=== PATIENT | female | born 1995 | race Caucasian/White ===

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

== ENCOUNTER 2017-12-09 22:18 | Emergency (ER) | payer OTHER ==
[~2017-12-09] VITALS: Ht 165.1 cm; Wt 97.5 kg
[2017-12-09 22:21] VITALS: BP 128/75
[2017-12-10] MEDS ORDERED: DICL50TA4 PO (00:22)
[2017-12-10] MEDS ORDERED: CYCL10TA2 PO (00:22)
[2017-12-10] MEDS ORDERED: METH4TAB2 PO (00:22)
--- NOTE | 2017-12-10 00:22 | PHYS DOC ---
Past Medical History Past Medical History: Depression Past Surgical History: Alcohol Use: Rarely Drug Use: None Adult General Chief Complaint Chief Complaint: LOWER EXT PAIN HPI HPI Patient is a 22 year old female with history of depression who presents today complaining of moderate right ankle pain and left lateral hip pain that began this morning when she woke up. Patient denies any known injury. States pain is worse on weight bearing. Has tried [id number]-ccaxiag patches with no relief. Describes the pain as throbbing and intermittent. Review of Systems Review of Systems Constitutional: Denies fever or chills [] Musculoskeletal: Reports left lateral hip pain and right ankle pain Integument: Denies rash or skin lesions [] Neurologic: Denies headache, focal weakness or sensory changes [] All other systems were reviewed and found to be within normal limits, except as documented in this note. Allergies Allergies Allergies Coded Allergies Type Severity Reaction Last Updated Verified No Known Drug Allergies 08/14/13 No Physical Exam Physical Exam Constitutional: Well developed, well nourished, no acute distress, non-toxic appearance. [] Skin: Warm, dry, no erythema, no rash. [] Back: No tenderness, no CVA tenderness. [] Extremities: Right ankle with no obvious deformity. Slight tenderness on palpation of the right lateral ankle. Full range of motion to the right ankle and toes. +2 right pedal pulse. Cap refill less than 2 seconds the right toes. Left hip with no obvious deformity. No tenderness on exam. Full range of motion to the left lower extremity. +2 left pedal pulse. Cap refill less than 2 seconds the left lower extremity. Neurologic: Alert and oriented X 3, normal motor function, normal sensory function, no focal deficits noted. [] Psychologic: Affect normal, judgement normal, mood normal. [] Current Patient Data Vital Signs Vital Signs Date Time Temp Pulse Resp B/P (MAP) Pulse Ox O2 Delivery O2 Flow Rate FiO2 12/09/17 22:21 98.9 92 18 128/75 (92) 100 Room Air 98.9 EKG EKG [] Radiology/Procedures Radiology/Procedures [] Course & Med Decision Making Course & Med Decision Making Pertinent Labs and Imaging studies reviewed. (See chart for details) This is a 22-year-old female patient presenting to the ED today with complaints of right ankle pain and left hip pain no known injury. X-rays are negative for any acute findings. Patient was discharged with diclofenac and cyclobenzaprine. Also given prescription for Medrol Dosepak. Provided orthopedic doctor for follow-up as an outpatient. Sanket Disclaimer Sanket Disclaimer This electronic medical record was generated, in whole or in part, using a voice recognition dictation system. Departure Departure Impression: Primary Impression: Left hip pain Additional Impression: Right ankle pain Disposition: HOME, SELF-CARE Condition: STABLE Referrals: JESSICA AC DO (PCP) follow up in one week SARKIS WELLS MD follow up in one week Patient Instructions: Ankle Pain, Musculoskeletal Pain Additional Instructions: You were seen for left hip pain and right ankle pain. Ice and elevate the affected areas. Use the prescribed medications as ordered. Follow-up with the provided specialist or your own doctor in one week. Scripts Methylprednisolone (MEDROL) 4 Mg Tab.ds.pk 1 PKG PO UD, #1 PKG Prov: ANGELA SHEETS APRN 12/10/17 Cyclobenzaprine Hcl (CYCLOBENZAPRINE HCL) 10 Mg Tablet 1 TAB PO TID, #30 TAB Prov: ANGELA SHEETS APRN 12/10/17 Diclofenac Sodium (DICLOFENAC SODIUM) 50 Mg Tablet.dr 1 TAB PO BID, #20 TAB 0 Refills Prov: ANGELA SHEETS APRN 12/10/17 Problem Qualifiers Additional Impression: Right ankle pain Chronicity: acute Qualified Codes: M25.571 - Pain in right ankle and joints of right foot MAHADSIMONANGELA CASTANEDA Dec 10, 2017 00:23
--- NOTE | 2017-12-10 07:52 | RAD ---
Right ankle, 3 views, 12/09/2016: HISTORY: Ankle pain No fracture or dislocation is identified. There is minimal soft tissue swelling. IMPRESSION: No acute bony abnormality is detected. Electronically signed by: Sarath Cabral MD (12/10/2017 7:49 AM) [facility]
--- NOTE | 2017-12-10 07:53 | RAD ---
Pelvis with left hip, 3 views, 12/09/2017: HISTORY: Pain No fracture or dislocation is identified. The hip joints are well-maintained. IMPRESSION: No significant abnormality is detected. Electronically signed by: Sarath Cabral MD (12/10/2017 7:50 AM) [facility]
== END 2017-12-10 00:29 | disposition home or self-care (01) ==
LOC: ER 22:18
DX: M25.571 Pain in right ankle and joints of right foot (principal); M25.552 Pain in left hip; F32.9 Major depressive disorder, single episode, unspecified; Z98.890 Other specified postprocedural states
CPT/HCPCS: 73502; 73610; 99284

== ENCOUNTER 2018-04-23 10:11 | Emergency (ER) | payer SELFPAY ==
[~2018-04-23] VITALS: Ht 165.1 cm; Wt 93.0 kg
[~2018-04-23 10:11] MED LIST changes: +CYCL10TA2 PO; +DICL50TA4 PO; +METH4TAB2 PO
[2018-04-23] MEDS ORDERED: LIDO:MAALOX 1:1 20 ML SINGLE DOSE. SWSW ONE (11:00)
--- NOTE | 2018-04-23 11:19 | PHYS DOC ---
Past Medical History Past Medical History: Depression Past Surgical History: Alcohol Use: Rarely Drug Use: None Adult General Chief Complaint Chief Complaint: ABDOMINAL PAIN HPI HPI Patient is a 22 year old female who presents to the ER with complaints of upper abdominal pain with nausea and vomiting x1 today. She denies any lower abdominal pain, back pain, diarrhea, fever, dysuria, irregular vaginal discharge , back pain, shortness of breath, or chest pain. She states the pain is sharp, burning, and stabbing. Currently, a 01/29. Pt states that nothing exacerbates or alleviates her pain. Pt states that when she vomited there was bright red blood in her vomit. She is currently taking augmentin for a sinus infection. Review of Systems Review of Systems Constitutional: Denies fever or chills [] Eyes: Denies change in visual acuity, redness, or eye pain [] HENT: Denies nasal congestion or sore throat [] Respiratory: Denies cough or shortness of breath [] Cardiovascular: No additional information not addressed in HPI [] GI: Denies abdominal pain, nausea, vomiting, bloody stools or diarrhea [] : Denies dysuria or hematuria [] Musculoskeletal: Denies back pain or joint pain [] Integument: Denies rash or skin lesions [] Neurologic: Denies headache, focal weakness or sensory changes [] Endocrine: Denies polyuria or polydipsia [] All other systems were reviewed and found to be within normal limits, except as documented in this note. Current Medications Current Medications Current Medications Medications (Trade) Dose Ordered Sig/Melinda Start Time Stop Time Status Last Admin Dose Admin Famotidine (Pepcid Vial) 20 mg 1X ONCE 04/23/18 12:45 04/23/18 12:46 DC 04/23/18 12:56 20 MG Morphine Sulfate (Morphine Sulfate) 4 mg 1X ONCE 04/23/18 12:45 04/23/18 12:46 DC 04/23/18 12:45 4 MG Multi-Ingredient Mouthwash/Gargle (Gi Cocktail) 20 ml 1X ONCE 04/23/18 11:00 04/23/18 11:01 DC 04/23/18 11:15 20 ML Ondansetron HCl (Zofran) 4 mg 1X ONCE 04/23/18 12:45 04/23/18 12:46 DC 04/23/18 12:54 4 MG Allergies Allergies Allergies Coded Allergies Type Severity Reaction Last Updated Verified No Known Drug Allergies 08/14/13 No Physical Exam Physical Exam Constitutional: Well developed, well nourished, no acute distress, non-toxic appearance. [] HENT: Normocephalic, atraumatic, bilateral external ears normal, oropharynx moist, no oral exudates, nose normal. [] Eyes: PERRLA, EOMI, conjunctiva normal, no discharge. [] Neck: Normal range of motion, no tenderness, supple, no stridor. [] Cardiovascular:Heart rate regular rhythm, no murmur [] Lungs & Thorax: Bilateral breath sounds clear to auscultation [] Abdomen: Bowel sounds normal, soft, no tenderness, no masses, no pulsatile masses. [] Skin: Warm, dry, no erythema, no rash. [] Back: No tenderness, no CVA tenderness. [] Extremities: No tenderness, no cyanosis, no clubbing, ROM intact, no edema. [] Neurologic: Alert and oriented X 3, normal motor function, normal sensory function, no focal deficits noted. [] Psychologic: Affect normal, judgement normal, mood normal. [] Current Patient Data Vital Signs Vital Signs Date Time Temp Pulse Resp B/P (MAP) Pulse Ox O2 Delivery O2 Flow Rate FiO2 04/23/18 11:22 90 148/94 (112) 100 Room Air 04/23/18 10:17 98.4 20 98.4 Lab Values Laboratory Tests Test 04/23/18 10:15 04/23/18 10:20 04/23/18 10:57 Urine Collection Type Unknown Urine Color Yellow Urine Clarity Clear Urine pH 7.5 Urine Specific [place] 1.020 Urine Protein Negative mg/dL (NEG-TRACE) Urine Glucose (UA) Negative mg/dL (NEG) Urine Ketones (Stick) Negative mg/dL (NEG) Urine Blood Negative (NEG) Urine Nitrite Negative (NEG) Urine Bilirubin Negative (NEG) Urine Urobilinogen Dipstick 0.2 mg/dL (0.2 mg/dL) Urine Leukocyte Esterase Negative (NEG) Urine RBC Occ /HPF (0-2) Urine WBC 1-4 /HPF (0-4) Urine Squamous Epithelial Cells Many /LPF Urine Bacteria Few /HPF (0-FEW) Urine Mucus Mod /LPF Sodium Level 140 mmol/L (136-145) Potassium Level 3.9 mmol/L (3.5-5.1) Chloride Level 102 mmol/L (98-107) Carbon Dioxide Level 30 mmol/L (21-32) Anion Gap 8 (6-14) Blood Urea Nitrogen 10 mg/dL (7-20) Creatinine 0.7 mg/dL (0.6-1.0) Estimated GFR (Cockcroft-Gault) 106.7 BUN/Creatinine Ratio 14 (6-20) Glucose Level 87 mg/dL (70-99) Calcium Level 9.8 mg/dL (8.5-10.1) Total Bilirubin 0.1 mg/dL (0.2-1.0) L Aspartate Amino Transferase (AST) 27 U/L (15-37) Alanine Aminotransferase (ALT) 34 U/L (14-59) Alkaline Phosphatase 84 U/L (46-116) Total Protein 9.0 g/dL (6.4-8.2) H Albumin 3.7 g/dL (3.4-5.0) Albumin/Globulin Ratio 0.7 (1.0-1.7) L Lipase 86 U/L (73-393) POC Urine HCG, Qualitative Hcg negative (Negative) White Blood Count 12.0 x10^3/uL (4.0-11.0) H Red Blood Count 4.89 x10^6/uL (3.50-5.40) Hemoglobin 11.9 g/dL (12.0-15.5) L Hematocrit 36.7 % (36.0-47.0) Mean Corpuscular Volume 75 fL (79-100) L Mean Corpuscular Hemoglobin 24 pg (25-35) L Mean Corpuscular Hemoglobin Concent 32 g/dL (31-37) Red Cell Distribution Width 18.2 % (11.5-14.5) H Platelet Count 419 x10^3/uL (140-400) H Neutrophils (%) (Auto) 62 % (31-73) Lymphocytes (%) (Auto) 27 % (24-48) Monocytes (%) (Auto) 7 % (0-9) Eosinophils (%) (Auto) 4 % (0-3) H Basophils (%) (Auto) 1 % (0-3) Neutrophils # (Auto) 7.4 x10^3uL (1.8-7.7) Lymphocytes # (Auto) 3.2 x10^3/uL (1.0-4.8) Monocytes # (Auto) 0.8 x10^3/uL (0.0-1.1) Eosinophils # (Auto) 0.5 x10^3/uL (0.0-0.7) Basophils # (Auto) 0.1 x10^3/uL (0.0-0.2) Platelet Estimate Increased (ADEQUATE) Giant Platelets Few Polychromasia Slight Hypochromasia Slight Anisocytosis Slight Laboratory Tests 04/23/18 10:57 Laboratory Tests 04/23/18 10:15 EKG EKG [] Radiology/Procedures Radiology/Procedures [] Course & Med Decision Making Course & Med Decision Making Pertinent Labs and Imaging studies reviewed. (See chart for details) [] Dragon Disclaimer Dragon Disclaimer This electronic medical record was generated, in whole or in part, using a voice recognition dictation system. Departure Departure Impression: Primary Impression: Acid reflux Additional Impressions: Epigastric abdominal pain Nausea & vomiting Disposition: 01 HOME, SELF-CARE Condition: STABLE Referrals: JESSICA AC DO (PCP) Patient Instructions: Diet for Gastroesophageal Reflux Disease, Adult, Easy-to- Read, Gastroesophageal Reflux Disease, Adult, [id number] Additional Instructions: Fill prescriptions and use them as directed. Recommend clear fluids for the next 24 hours. Then you may advance to bland foods such as bananas, rice, applesauce, and dry toast. Follow-up with your primary care doctor in the next 1 -2 days. Return to the emergency room if your symptoms worsen. Scripts Famotidine (FAMOTIDINE) 20 Mg Tablet 20 MG PO BID for 10 Days, #20 TAB 0 Refills Prov: MICHELLE ESTEVEZ [address] [employer] 04/23/18 Ondansetron (ONDANSETRON ODT) 4 Mg Tab.rapdis 1 TAB PO PRN Q6-8HRS PRN for NAUSEA/VOMITING, #16 TAB 0 Refills Prov: MICHELLE [address]EV[address] [employer] 04/23/18 Problem Qualifiers Primary Impression: Acid reflux Esophagitis presence: esophagitis presence not specified Qualified Codes: K21.9 - Gastro-esophageal reflux disease without esophagitis Additional Impressions: Nausea & vomiting Vomiting type: unspecified Vomiting Intractability: non-intractable Qualified Codes: R11.2 - Nausea with vomiting, unspecified MICHELLE [address] [employer] Apr 23, 2018 11:19
[2018-04-23 11:25] LABS: BILIRUBIN,URINE NEGATIVE (NEG); CLARITY,URINE CLEAR; COLOR,URINE YELLOW; NITRITE,URINE NEGATIVE (NEG); PH,URINE 7.5; PROTEIN,URINE NEGATIVE (NEG-TRACE); UROBILINOGEN,URINE 0.2 mg/dL (0.2 mg/dL)
[2018-04-23 11:26] LABS: BASO # 0.1 x10^3/uL (0.0-0.2); BASO % 1 % (0-3); EOS # 0.5 x10^3/uL (0.0-0.7); EOS % 4 % (0-3); HEMATOCRIT 36.7 % (36.0-47.0); HEMOGLOBIN 11.9 g/dL (12.0-15.5); LYMPH # 3.2 x10^3/uL (1.0-4.8); LYMPH % 27 % (24-48); MEAN CORPUSCULAR HEMOGLOBIN 24 pg (25-35); MEAN CORPUSCULAR HGB CONC 32 g/dL (31-37); MEAN CORPUSCULAR VOLUME 75 fL (79-100); MONO # 0.8 x10^3/uL (0.0-1.1); MONO % 7 % (0-9); NEUT # 7.4 x10^3uL (1.8-7.7); NEUT % 62 % (31-73); PLATELET COUNT 419 x10^3/uL (140-400); RED BLOOD COUNT 4.89 x10^6/uL (3.50-5.40); RED CELL DISTRIBUTION WIDTH 18.2 % (11.5-14.5)
[2018-04-23 11:29] LABS: CALCIUM 9.8 mg/dL (8.5-10.1); CREATININE 0.7 mg/dL (0.6-1.0); GFR 106.7; POTASSIUM 3.9 mmol/L (3.5-5.1)
[2018-04-23 11:36] LABS: ALBUMIN 3.7 g/dL (3.4-5.0); ALBUMIN/GLOBULIN RATIO 0.7 (1.0-1.7); TOTAL BILIRUBIN 0.1 mg/dL (0.2-1.0)
[2018-04-23 11:57] LABS: BACTERIA,URINE FEW /HPF (0-FEW); RBC,URINE OCC /HPF (0-2); SQUAMOUS EPITHELIAL CELL,UR MANY /LPF
[2018-04-23 12:38] VITALS: BP 157/101
[2018-04-23] MEDS ORDERED: ONDANSETRON PF 4 MG/2 ML VIAL. IV ONE (12:45)
[2018-04-23] MEDS ORDERED: FAMOTIDINE 20 MG/2 ML VIAL IVP ONE (12:45)
[2018-04-23] MEDS ORDERED: MORPHINE SULFATE 4 MG/ML VIAL. IV ONE (12:45)
[2018-04-23 12:59] LABS: ANISOCYTOSIS SLIGHT; HYPOCHROMIA SLIGHT; PLT ESTIMATE INCREASED (ADEQUATE); POLYCHROMASIA SLIGHT
[2018-04-23] MEDS ORDERED: FAMO20TA5 PO (13:44)
[2018-04-23] MEDS ORDERED: ONDA4TAB12 PO (13:44)
== END 2018-04-23 14:01 | disposition home or self-care (01) ==
LOC: ER 10:11
DX: K21.9 Gastro-esophageal reflux disease without esophagitis (principal); R11.2 Nausea with vomiting, unspecified; F32.9 Major depressive disorder, single episode, unspecified
CPT/HCPCS: 36415; 80053; 81001; 81025; 83690; 85025; 96374; 96375; 99283; J2270; J2405; J3490

== ENCOUNTER 2018-06-17 16:40 | Inpatient (IN) | payer BC ==
[~2018-06-17] VITALS: Ht 165.1 cm; Wt 94.8 kg
[~2018-06-17 16:40] MED LIST changes: +FAMO-63 PO; +FAMO20TA5 PO; +HYDR-3164 PO; +ONDA4TAB12 PO
[2018-06-17 17:31] LABS: BASO # 0.1 x10^3/uL (0.0-0.2); BASO % 1 % (0-3); EOS # 0.1 x10^3/uL (0.0-0.7); EOS % 1 % (0-3); HEMATOCRIT 38.1 % (36.0-47.0); HEMOGLOBIN 12.1 g/dL (12.0-15.5); LYMPH # 1.9 x10^3/uL (1.0-4.8); LYMPH % 17 % (24-48); MEAN CORPUSCULAR HEMOGLOBIN 24 pg (25-35); MEAN CORPUSCULAR HGB CONC 32 g/dL (31-37); MEAN CORPUSCULAR VOLUME 77 fL (79-100); MONO # 0.6 x10^3/uL (0.0-1.1); MONO % 6 % (0-9); NEUT # 8.6 x10^3uL (1.8-7.7); NEUT % 76 % (31-73); PLATELET COUNT 329 x10^3/uL (140-400); RED BLOOD COUNT 4.95 x10^6/uL (3.50-5.40); RED CELL DISTRIBUTION WIDTH 18.3 % (11.5-14.5); WHITE BLOOD COUNT 11.3 x10^3/uL (4.0-11.0)
[2018-06-17 17:41] LABS: CALCIUM 9.7 mg/dL (8.5-10.1); CREATININE 0.7 mg/dL (0.6-1.0); GFR 106.7
[2018-06-17 17:50] LABS: ALBUMIN 3.9 g/dL (3.4-5.0); ALBUMIN/GLOBULIN RATIO 0.9 (1.0-1.7); TOTAL BILIRUBIN 0.1 mg/dL (0.2-1.0); TOTAL PROTEIN 8.1 g/dL (6.4-8.2)
--- NOTE | 2018-06-17 19:12 | RAD ---
Indication:RUQ PAIN HX STONES TECHNIQUE: Grayscale, color Doppler and spectral waveform is of the abdomen obtained. COMPARISON:05/23/2018 FINDINGS: Visualized pancreas is within normal limits. IVC within normal limits. Liver is mildly enlarged measuring 18 cm in length with normal echogenicity. No pericholecystic fluid. Gallbladder wall is top normal in thickness. Layering gallstones noted. CBD is mildly dilated measuring 6 mm. Right kidney measures 10 cm in length without hydronephrosis. IMPRESSION: 1. Cholelithiasis with gallbladder distention and positive sonographic Baez's sign. Correlate for signs and symptoms of acute cholecystitis. 2. Dilated CBD, new from previous exam may be secondary to distal obstructing stone. Further evaluation with MRCP recommended. Electronically signed by: José Mantilla DO (06/17/2018 7:09 PM) [facility]
[2018-06-17] MEDS ORDERED: fentaNYL PF VIAL 100 MCG/2 ML VIAL IV ONE (19:15)
[2018-06-17] MEDS ORDERED: IV NORMAL SALINE 1000ML BAG 1,000 ML IV ONE (19:15)
[2018-06-17] MEDS ORDERED: ONDANSETRON PF 4 MG/2 ML VIAL. IV PRN (19:45)
[2018-06-17] MEDS ORDERED: MORPHINE SULFATE 4 MG/ML VIAL. IV PRN (19:45)
--- NOTE | 2018-06-17 20:02 | PHYS DOC ---
Past Medical History Past Medical History: Depression, Other Additional Past Medical Histor: gallstones Past Surgical History: Alcohol Use: Rarely Drug Use: None Adult General Chief Complaint Chief Complaint: ABDOMINAL PAIN HPI HPI Patient is a 22 year old female who presents with RUQ pain. The patient was seen here on the 23 of May and diagnosed with cholelithiasis. She states she tried to make a follow up appointment, but then felt better and did not follow through. She developed severe pain today and also had nausea. She feels that she has significantly worsened. She denies vomiting, constipation or diarrhea. She denies fever. The patient has been nothing by mouth since noon today with sips of water this afternoon. Review of Systems Review of Systems Constitutional: Denies fever or chills [] Respiratory: Denies cough or shortness of breath [] Cardiovascular: No additional information not addressed in HPI [] GI: See history of present illness : Denies dysuria or hematuria [] Musculoskeletal: Denies back pain or joint pain [] Integument: Denies rash or skin lesions [] Neurologic: Denies headache, focal weakness or sensory changes [] Endocrine: Denies polyuria or polydipsia [] All other systems were reviewed and found to be within normal limits, except as documented in this note. Current Medications Current Medications Current Medications Medications (Trade) Dose Ordered Sig/[facility] Start Time Stop Time Status Last Admin Dose Admin Fentanyl Citrate (Fentanyl 2ml Vial) 50 mcg PRN Q1HR PRN 06/17/18 19:45 06/18/18 19:44 Morphine Sulfate (Morphine Sulfate) 4 mg PRN Q2HR PRN 06/17/18 19:45 06/18/18 19:44 Ondansetron HCl (Zofran) 4 mg PRN Q8HRS PRN 06/17/18 19:45 06/18/18 19:44 Sodium Chloride 1,000 ml @ 125 mls/hr Q8H 06/17/18 19:36 06/18/18 19:35 Allergies Allergies Allergies Coded Allergies Type Severity Reaction Last Updated Verified No Known Drug Allergies 08/14/13 No Physical Exam Physical Exam Constitutional: Well developed, well nourished, no acute distress, non-toxic appearance. [] Neck: Normal range of motion, no tenderness, supple, no stridor. [] Cardiovascular:Heart rate regular rhythm, no murmur [] Lungs & Thorax: Bilateral breath sounds clear to auscultation [] Abdomen: Bowel sounds normal, soft, right upper quadrant tenderness, positive Baez's sign, no masses, no pulsatile masses. [] Skin: Warm, dry, no erythema, no rash. [] Back: No tenderness, no CVA tenderness. [] Extremities: No tenderness, no cyanosis, no clubbing, ROM intact, no edema. [] Neurologic: Alert and oriented X 3, normal motor function, normal sensory function, no focal deficits noted. [] Psychologic: Affect normal, judgement normal, mood normal. [] Current Patient Data Vital Signs Vital Signs Date Time Temp Pulse Resp B/P (MAP) Pulse Ox O2 Delivery O2 Flow Rate FiO2 06/17/18 19:21 97 18 132/88 (103) 99 Room Air 06/17/18 16:55 97.9 97.9 Lab Values Laboratory Tests Test 06/17/18 17:25 06/17/18 17:58 White Blood Count 11.3 x10^3/uL (4.0-11.0) H Red Blood Count 4.95 x10^6/uL (3.50-5.40) Hemoglobin 12.1 g/dL (12.0-15.5) Hematocrit 38.1 % (36.0-47.0) Mean Corpuscular Volume 77 fL (79-100) L Mean Corpuscular Hemoglobin 24 pg (25-35) L Mean Corpuscular Hemoglobin Concent 32 g/dL (31-37) Red Cell Distribution Width 18.3 % (11.5-14.5) H Platelet Count 329 x10^3/uL (140-400) Neutrophils (%) (Auto) 76 % (31-73) H Lymphocytes (%) (Auto) 17 % (24-48) L Monocytes (%) (Auto) 6 % (0-9) Eosinophils (%) (Auto) 1 % (0-3) Basophils (%) (Auto) 1 % (0-3) Neutrophils # (Auto) 8.6 x10^3uL (1.8-7.7) H Lymphocytes # (Auto) 1.9 x10^3/uL (1.0-4.8) Monocytes # (Auto) 0.6 x10^3/uL (0.0-1.1) Eosinophils # (Auto) 0.1 x10^3/uL (0.0-0.7) Basophils # (Auto) 0.1 x10^3/uL (0.0-0.2) Sodium Level 140 mmol/L (136-145) Potassium Level 4.0 mmol/L (3.5-5.1) Chloride Level 103 mmol/L (98-107) Carbon Dioxide Level 29 mmol/L (21-32) Anion Gap 8 (6-14) Blood Urea Nitrogen 17 mg/dL (7-20) Creatinine 0.7 mg/dL (0.6-1.0) Estimated GFR (Cockcroft-Gault) 106.7 BUN/Creatinine Ratio 24 (6-20) H Glucose Level 99 mg/dL (70-99) Calcium Level 9.7 mg/dL (8.5-10.1) Total Bilirubin 0.1 mg/dL (0.2-1.0) L Aspartate Amino Transferase (AST) 13 U/L (15-37) L Alanine Aminotransferase (ALT) 15 U/L (14-59) Alkaline Phosphatase 79 U/L (46-116) Total Protein 8.1 g/dL (6.4-8.2) Albumin 3.9 g/dL (3.4-5.0) Albumin/Globulin Ratio 0.9 (1.0-1.7) L Amylase Level 30 U/L (25-115) Lipase 89 U/L (73-393) POC Urine HCG, Qualitative Hcg negative (Negative) Laboratory Tests 06/17/18 17:25 Laboratory Tests 06/17/18 17:25 EKG EKG [] Radiology/Procedures Radiology/Procedures [] Course & Med Decision Making Course & Med Decision Making Pertinent Labs and Imaging studies reviewed. (See chart for details) The patient received Zofran and fentanyl in the emergency department as well as a bolus of fluids. The patient's ultrasound does show that her condition has worsened with possible bile duct obstruction. Dr. Dey was consulted in the care of this patient. She is being admitted to Dr. Poole's service. Dragon Disclaimer Dragon Disclaimer This electronic medical record was generated, in whole or in part, using a voice recognition dictation system. Departure Departure Impression: Primary Impression: Cholecystitis Additional Impression: Cholelithiasis Disposition: ADMITTED INPATIENT Condition: STABLE Problem Qualifiers AZUL POWELL APRN Jun 17, 2018 20:02
[2018-06-17 21:15] VITALS: BP_SYST 118; BP_SYST 132; BP_DIAS 66; BP_DIAS 72
--- NOTE | 2018-06-17 21:15 | NUR ---
ADMIT Pt arrived via gurney to unit. A/Ox4, room air VSS, afebrile. Pt c/o pain in RUQ 07/30. Denies current N/V. IVF initiated at this time. Full admission assessment completed at this time. Pt denies med allergies. Discussed plan of care, advised NPO. Call light w/in reach, bed in lowest and locked position. Will continue to monitor closely.
[2018-06-17] MEDS: IV NORMAL SALINE 1000ML BAG 1,000 ML IV SCH (21:38)
[2018-06-17] MEDS: fentaNYL PF VIAL 100 MCG/2 ML VIAL IV PRN (21:49)
[2018-06-17 23:20] VITALS: BP 132/66
[2018-06-18] MEDS: fentaNYL PF VIAL 100 MCG/2 ML VIAL IV PRN ×4 (00:19→15:52)
[2018-06-18 03:39] VITALS: BP 104/60
[2018-06-18 04:24] LABS: BASO # 0.1 x10^3/uL (0.0-0.2); BASO % 1 % (0-3); EOS # 0.2 x10^3/uL (0.0-0.7); EOS % 3 % (0-3); HEMOGLOBIN 10.9 g/dL (12.0-15.5); LYMPH # 3.5 x10^3/uL (1.0-4.8); LYMPH % 43 % (24-48); MEAN CORPUSCULAR HEMOGLOBIN 25 pg (25-35); MEAN CORPUSCULAR HGB CONC 32 g/dL (31-37); MEAN CORPUSCULAR VOLUME 77 fL (79-100); MONO # 0.6 x10^3/uL (0.0-1.1); MONO % 7 % (0-9); NEUT # 3.9 x10^3uL (1.8-7.7); NEUT % 47 % (31-73); PLATELET COUNT 280 x10^3/uL (140-400); RED BLOOD COUNT 4.42 x10^6/uL (3.50-5.40); RED CELL DISTRIBUTION WIDTH 18.5 % (11.5-14.5); WHITE BLOOD COUNT 8.2 x10^3/uL (4.0-11.0)
[2018-06-18] MEDS: IV NORMAL SALINE 1000ML BAG 1,000 ML IV SCH ×2 (05:47→11:36)
[2018-06-18 06:13] LABS: CALCIUM 8.6 mg/dL (8.5-10.1); CREATININE 0.7 mg/dL (0.6-1.0); GFR 106.7; POTASSIUM 3.5 mmol/L (3.5-5.1)
[2018-06-18 07:00] VITALS: BP 106/64
--- NOTE | 2018-06-18 07:22 | NUR ---
Routine Consult called to Dr. Dey regarding acute cholelithiasis and acute cholecystitis.
[2018-06-18] MEDS ORDERED: ONDANSETRON ODT 4 MG TAB.RAPDIS. PO PRN (09:00)
[2018-06-18] MEDS ORDERED: ONDANSETRON PF 4 MG/2 ML VIAL. IV PRN (09:00)
[2018-06-18] MEDS ORDERED: HYDROcodone/APAP 5/325MG 1 TAB TABLET PO PRN (09:00)
[2018-06-18] MEDS ORDERED: FAMOTIDINE 20 MG TABLET. PO SCH (09:00)
[2018-06-18] MEDS ORDERED: ACETAMINOPHEN 500 MG TABLET PO PRN (09:00)
[2018-06-18] MEDS ORDERED: ACETAMINOPHEN/CODEINE 300/30MG TABLET. PO PRN (09:00)
[2018-06-18] MEDS: CYCLOBENZAPRINE 10 MG TABLET. PO SCH ×3 (10:00→23:51)
[2018-06-18] MEDS: FAMOTIDINE 20 MG TABLET. PO SCH ×2 (10:00→20:00)
--- NOTE | 2018-06-18 10:19 | PDOC2 ---
CONSULT Date of Consult Date of Consult DATE: 06/18/18 TIME: 10:14 Reason for Consult Reason for Consult: Symptomatic cholelithiasis Referring Physician Referring Physician: Emery Identification/Chief Complaint Chief Complaint epigastric pain Source Source: Chart review, Patient History of Present Illness Reason for Visit: 22 yo F with multiple ER visits over the past month for epigastric abd pain. Worsened last night and was admitted. Pain in epigastric/RUQ area. N/V. Pt does report feeling better today. Past Medical History Cardiovascular: No pertinent hx Psych: Depression Past Surgical History Past Surgical History: Family History Family History: No Significant Social History ALCOHOL: social Current Problem List Problem List Problems Medical Problems: (1) Cholecystitis Status: Acute (2) Cholelithiasis Status: Acute Current Medications Current Medications Current Medications Sodium Chloride 1,000 ml @ 1,000 mls/hr 1X ONCE IV Last administered on at 19:22; Start 06/17/18 at 19:15; Stop 06/17/18 at 20:14; Status DC Fentanyl Citrate (Fentanyl 2ml Vial) 50 mcg 1X ONCE IV Last administered on at 19:23; Start 06/17/18 at 19:15; Stop 06/17/18 at 19:16; Status DC Ondansetron HCl (Zofran) 4 mg PRN Q8HRS PRN IV NAUSEA/VOMITING Last administered on 06/18/18at 05:52; Start 06/17/18 at 19:45; Stop 06/18/18 at 08:57 ; Status DC Morphine Sulfate (Morphine Sulfate) 4 mg PRN Q2HR PRN IV PAIN; Start 06/17/18 at 19:45; Stop 06/18/18 at 19:44 Fentanyl Citrate (Fentanyl 2ml Vial) 50 mcg PRN Q1HR PRN IV PAIN Last administered on 06/18/18at 05:51; Start 06/17/18 at 19:45; Stop 06/18/18 at 19:44 Sodium Chloride 1,000 ml @ 125 mls/hr Q8H IV Last administered on 06/18/18at 05 :47; Start 06/17/18 at 19:36; Stop 06/18/18 at 19:35 Ondansetron HCl (Zofran) 4 mg PRN Q6HRS PRN IV NAUSEA/VOMITING; Start 06/18/18 at 09:00 Acetaminophen (Tylenol) 500 mg PRN Q6HRS PRN PO MILD PAIN / TEMP; Start at 09:00 Acetaminophen/ Codeine Phosphate (Tylenol #3) 1 tab PRN Q6HRS PRN PO MODERATE PAIN; Start 06/18/18 at 09:00 Cyclobenzaprine HCl (Flexeril) 10 mg TID PO ; Start 06/18/18 at 10:00 Famotidine (Pepcid) 20 mg BID PO ; Start 06/18/18 at 10:00 Famotidine (Pepcid) 20 mg BID PO ; Start 06/18/18 at 09:00; Status UNV Acetaminophen/ Hydrocodone Bitart (Lortab 5/325) 1 tab PRN Q6HRS PRN PO SEVERE PAIN; Start 06/18/18 at 09:00 Ondansetron HCl (Zofran Odt) 4 mg PRN QID PRN PO NAUSEA/VOMITING; Start at 09:00 Active Scripts Active Pepcid (Famotidine) 20 Mg Tablet 20 Mg PO BID Ondansetron Odt (Ondansetron) 4 Mg Tab.rapdis 1 Tab PO PRN Q6-8HRS [place] 5-325 Tablet (Acetaminophen/Hydrocodone Bitart) 1 Each Tablet 1 Tab PO PRN Q6HRS PRN Famotidine 20 Mg Tablet 20 Mg PO BID 10 Days Ondansetron Odt (Ondansetron) 4 Mg Tab.rapdis 1 Tab PO PRN Q6-8HRS PRN Medrol (Methylprednisolone) 4 Mg Tab.ds.pk 1 Pkg PO UD Cyclobenzaprine Hcl 10 Mg Tablet 1 Tab PO TID Diclofenac Sodium 50 Mg Tablet.dr 1 Tab PO BID Valtrex (Valacyclovir Hcl) 1,000 Mg Tablet 1 Tab PO BID 7 Days Reported Lutera (Levonorgestrel-Eth Estradiol) 1 Each Tablet 1 Each PO DAILY Allergies Allergies: Coded Allergies: No Known Drug Allergies (Unverified , 08/14/13) ROS Gastrointestinal: Yes Abdominal Pain Physical Exam General: Alert, Oriented X3, Cooperative, No acute distress HEENT: Atraumatic Lungs: Normal air movement Abdomen: Soft, Other (mild TTP RUQ) Extremities: No clubbing, No cyanosis Skin: No rashes, No breakdown Neuro: Normal speech, Sensation intact Psych/Mental Status: Mental status NL, Mood NL Vitals VITALS Vital Signs Date Time Temp Pulse Resp B/P (MAP) Pulse Ox O2 Delivery O2 Flow Rate FiO2 06/18/18 07:00 98.1 86 18 106/64 (78) 100 Room Air 98.1 Labs Labs Laboratory Tests Test 06/17/18 17:25 06/17/18 17:58 06/18/18 03:35 White Blood Count 11.3 x10^3/uL (4.0-11.0) 8.2 x10^3/uL (4.0-11.0) Red Blood Count 4.95 x10^6/uL (3.50-5.40) 4.42 x10^6/uL (3.50-5.40) Hemoglobin 12.1 g/dL (12.0-15.5) 10.9 g/dL (12.0-15.5) Hematocrit 38.1 % (36.0-47.0) 34.0 % (36.0-47.0) Mean Corpuscular Volume 77 fL (79-100) 77 fL (79-100) Mean Corpuscular Hemoglobin 24 pg (25-35) 25 pg (25-35) Mean Corpuscular Hemoglobin Concent 32 g/dL (31-37) 32 g/dL (31-37) Red Cell Distribution Width 18.3 % (11.5-14.5) 18.5 % (11.5-14.5) Platelet Count 329 x10^3/uL (140-400) 280 x10^3/uL (140-400) Neutrophils (%) (Auto) 76 % (31-73) 47 % (31-73) Lymphocytes (%) (Auto) 17 % (24-48) 43 % (24-48) Monocytes (%) (Auto) 6 % (0-9) 7 % (0-9) Eosinophils (%) (Auto) 1 % (0-3) 3 % (0-3) Basophils (%) (Auto) 1 % (0-3) 1 % (0-3) Neutrophils # (Auto) 8.6 x10^3uL (1.8-7.7) 3.9 x10^3uL (1.8-7.7) Lymphocytes # (Auto) 1.9 x10^3/uL (1.0-4.8) 3.5 x10^3/uL (1.0-4.8) Monocytes # (Auto) 0.6 x10^3/uL (0.0-1.1) 0.6 x10^3/uL (0.0-1.1) Eosinophils # (Auto) 0.1 x10^3/uL (0.0-0.7) 0.2 x10^3/uL (0.0-0.7) Basophils # (Auto) 0.1 x10^3/uL (0.0-0.2) 0.1 x10^3/uL (0.0-0.2) Sodium Level 140 mmol/L (136-145) 141 mmol/L (136-145) Potassium Level 4.0 mmol/L (3.5-5.1) 3.5 mmol/L (3.5-5.1) Chloride Level 103 mmol/L (98-107) 104 mmol/L (98-107) Carbon Dioxide Level 29 mmol/L (21-32) 26 mmol/L (21-32) Anion Gap 8 (6-14) 11 (6-14) Blood Urea Nitrogen 17 mg/dL (7-20) 13 mg/dL (7-20) Creatinine 0.7 mg/dL (0.6-1.0) 0.7 mg/dL (0.6-1.0) Estimated GFR (Cockcroft-Gault) 106.7 106.7 BUN/Creatinine Ratio 24 (6-20) Glucose Level 99 mg/dL (70-99) 119 mg/dL (70-99) Calcium Level 9.7 mg/dL (8.5-10.1) 8.6 mg/dL (8.5-10.1) Total Bilirubin 0.1 mg/dL (0.2-1.0) Aspartate Amino Transf (AST/SGOT) 13 U/L (15-37) Alanine Aminotransferase (ALT/SGPT) 15 U/L (14-59) Alkaline Phosphatase 79 U/L (46-116) Total Protein 8.1 g/dL (6.4-8.2) Albumin 3.9 g/dL (3.4-5.0) Albumin/Globulin Ratio 0.9 (1.0-1.7) Amylase Level 30 U/L (25-115) Lipase 89 U/L (73-393) Bedside Urine HCG, Qualitative Hcg negative (Negative) Laboratory Tests Test 06/17/18 17:25 06/17/18 17:58 06/18/18 03:35 White Blood Count 11.3 x10^3/uL (4.0-11.0) 8.2 x10^3/uL (4.0-11.0) Red Blood Count 4.95 x10^6/uL (3.50-5.40) 4.42 x10^6/uL (3.50-5.40) Hemoglobin 12.1 g/dL (12.0-15.5) 10.9 g/dL (12.0-15.5) Hematocrit 38.1 % (36.0-47.0) 34.0 % (36.0-47.0) Mean Corpuscular Volume 77 fL (79-100) 77 fL (79-100) Mean Corpuscular Hemoglobin 24 pg (25-35) 25 pg (25-35) Mean Corpuscular Hemoglobin Concent 32 g/dL (31-37) 32 g/dL (31-37) Red Cell Distribution Width 18.3 % (11.5-14.5) 18.5 % (11.5-14.5) Platelet Count 329 x10^3/uL (140-400) 280 x10^3/uL (140-400) Neutrophils (%) (Auto) 76 % (31-73) 47 % (31-73) Lymphocytes (%) (Auto) 17 % (24-48) 43 % (24-48) Monocytes (%) (Auto) 6 % (0-9) 7 % (0-9) Eosinophils (%) (Auto) 1 % (0-3) 3 % (0-3) Basophils (%) (Auto) 1 % (0-3) 1 % (0-3) Neutrophils # (Auto) 8.6 x10^3uL (1.8-7.7) 3.9 x10^3uL (1.8-7.7) Lymphocytes # (Auto) 1.9 x10^3/uL (1.0-4.8) 3.5 x10^3/uL (1.0-4.8) Monocytes # (Auto) 0.6 x10^3/uL (0.0-1.1) 0.6 x10^3/uL (0.0-1.1) Eosinophils # (Auto) 0.1 x10^3/uL (0.0-0.7) 0.2 x10^3/uL (0.0-0.7) Basophils # (Auto) 0.1 x10^3/uL (0.0-0.2) 0.1 x10^3/uL (0.0-0.2) Sodium Level 140 mmol/L (136-145) 141 mmol/L (136-145) Potassium Level 4.0 mmol/L (3.5-5.1) 3.5 mmol/L (3.5-5.1) Chloride Level 103 mmol/L (98-107) 104 mmol/L (98-107) Carbon Dioxide Level 29 mmol/L (21-32) 26 mmol/L (21-32) Anion Gap 8 (6-14) 11 (6-14) Blood Urea Nitrogen 17 mg/dL (7-20) 13 mg/dL (7-20) Creatinine 0.7 mg/dL (0.6-1.0) 0.7 mg/dL (0.6-1.0) Estimated GFR (Cockcroft-Gault) 106.7 106.7 BUN/Creatinine Ratio 24 (6-20) Glucose Level 99 mg/dL (70-99) 119 mg/dL (70-99) Calcium Level 9.7 mg/dL (8.5-10.1) 8.6 mg/dL (8.5-10.1) Total Bilirubin 0.1 mg/dL (0.2-1.0) Aspartate Amino Transf (AST/SGOT) 13 U/L (15-37) Alanine Aminotransferase (ALT/SGPT) 15 U/L (14-59) Alkaline Phosphatase 79 U/L (46-116) Total Protein 8.1 g/dL (6.4-8.2) Albumin 3.9 g/dL (3.4-5.0) Albumin/Globulin Ratio 0.9 (1.0-1.7) Amylase Level 30 U/L (25-115) Lipase 89 U/L (73-393) Bedside Urine HCG, Qualitative Hcg negative (Negative) Images Images US c/w calculous cholecystitis, some CBD dilation Assessment/Plan Assessment/Plan Calculous cholecystitis will plan recommend MRCP and ask GI to comment plan laparoscopic cholecystectomy with cholangiogram in AM R/R/B/A d/w pt and pt's family. Thanks for consult! RIN HOWARD MD Jun 18, 2018 10:19
--- NOTE | 2018-06-18 10:31 | PDOC2 ---
GI CONSULT Reason For Consult: mrcp? distal CBD stone HPI: HPI: 22 y/o female w/ known gallstones admitted through ER. Evaluated there three times this year. Reports recurrent sharp stabbing epigastric pain w/ slight radiation to RUQ and sometimes felt through to back. Recurred yesterday after eating cereal, this time associated w/ vomiting. In the past tried ibuprofen, H2 jordana, and liquid antacid without improvement. Mildly elevated WBC yesterday, now resolved. Normal LFTs and lipase. On US: cholelithiasis w/ +Baez's sign, CBD dilatation (6mm compared to 3mm on previous exam). Surgery has seen, has orders for MRCP. She says was told cholecystectomy tomorrow. Denies reflux/heartburn, dysphagia, hematemesis, diarrhea, constipation, hematochezia, or melena. No previous EGD or colonoscopy. Hepatic steatosis on past imaging - she is aware of this. No pancreas history. PMH: PMH: cholelithiasis, hepatic steatosis, depression FH: Family History: Cancer (breast - multiple maternal and paternal relatives), Other (mother - GB disease) Social History: Smoke: <1 pack per day ALCOHOL: none Drugs: None ROS: GEN: Denies fevers, chills, sweats HEENT: Denies blurred vision, sore throat CV: Denies chest pain RESP: Denies shortness of air, cough GI: Per HPI : Denies hematuria, dysuria ENDO: Denies weight changes NEURO: Denies confusion, dizziness MSK: Denies weakness, joint pain/swelling SKIN: Denies jaundice, pruritus Vitals: Vitals: Vital Signs Date Time Temp Pulse Resp B/P (MAP) Pulse Ox O2 Delivery O2 Flow Rate FiO2 06/18/18 10:17 100 Room Air 06/18/18 07:00 98.1 86 18 106/64 (78) 98.1 Labs: Labs: Laboratory Tests Test 06/17/18 17:25 06/17/18 17:58 06/18/18 03:35 White Blood Count 11.3 x10^3/uL (4.0-11.0) 8.2 x10^3/uL (4.0-11.0) Red Blood Count 4.95 x10^6/uL (3.50-5.40) 4.42 x10^6/uL (3.50-5.40) Hemoglobin 12.1 g/dL (12.0-15.5) 10.9 g/dL (12.0-15.5) Hematocrit 38.1 % (36.0-47.0) 34.0 % (36.0-47.0) Mean Corpuscular Volume 77 fL (79-100) 77 fL (79-100) Mean Corpuscular Hemoglobin 24 pg (25-35) 25 pg (25-35) Mean Corpuscular Hemoglobin Concent 32 g/dL (31-37) 32 g/dL (31-37) Red Cell Distribution Width 18.3 % (11.5-14.5) 18.5 % (11.5-14.5) Platelet Count 329 x10^3/uL (140-400) 280 x10^3/uL (140-400) Neutrophils (%) (Auto) 76 % (31-73) 47 % (31-73) Lymphocytes (%) (Auto) 17 % (24-48) 43 % (24-48) Monocytes (%) (Auto) 6 % (0-9) 7 % (0-9) Eosinophils (%) (Auto) 1 % (0-3) 3 % (0-3) Basophils (%) (Auto) 1 % (0-3) 1 % (0-3) Neutrophils # (Auto) 8.6 x10^3uL (1.8-7.7) 3.9 x10^3uL (1.8-7.7) Lymphocytes # (Auto) 1.9 x10^3/uL (1.0-4.8) 3.5 x10^3/uL (1.0-4.8) Monocytes # (Auto) 0.6 x10^3/uL (0.0-1.1) 0.6 x10^3/uL (0.0-1.1) Eosinophils # (Auto) 0.1 x10^3/uL (0.0-0.7) 0.2 x10^3/uL (0.0-0.7) Basophils # (Auto) 0.1 x10^3/uL (0.0-0.2) 0.1 x10^3/uL (0.0-0.2) Sodium Level 140 mmol/L (136-145) 141 mmol/L (136-145) Potassium Level 4.0 mmol/L (3.5-5.1) 3.5 mmol/L (3.5-5.1) Chloride Level 103 mmol/L (98-107) 104 mmol/L (98-107) Carbon Dioxide Level 29 mmol/L (21-32) 26 mmol/L (21-32) Anion Gap 8 (6-14) 11 (6-14) Blood Urea Nitrogen 17 mg/dL (7-20) 13 mg/dL (7-20) Creatinine 0.7 mg/dL (0.6-1.0) 0.7 mg/dL (0.6-1.0) Estimated GFR (Cockcroft-Gault) 106.7 106.7 BUN/Creatinine Ratio 24 (6-20) Glucose Level 99 mg/dL (70-99) 119 mg/dL (70-99) Calcium Level 9.7 mg/dL (8.5-10.1) 8.6 mg/dL (8.5-10.1) Total Bilirubin 0.1 mg/dL (0.2-1.0) Aspartate Amino Transf (AST/SGOT) 13 U/L (15-37) Alanine Aminotransferase (ALT/SGPT) 15 U/L (14-59) Alkaline Phosphatase 79 U/L (46-116) Total Protein 8.1 g/dL (6.4-8.2) Albumin 3.9 g/dL (3.4-5.0) Albumin/Globulin Ratio 0.9 (1.0-1.7) Amylase Level 30 U/L (25-115) Lipase 89 U/L (73-393) Bedside Urine HCG, Qualitative Hcg negative (Negative) Allergies: Coded Allergies: No Known Drug Allergies (Unverified , 08/14/13) Medications: Current Medications Medications (Trade) Dose Ordered Sig/Melinda Route PRN Reason Start Time Stop Time Status Last Admin Dose Admin Sodium Chloride 1,000 ml @ 1,000 mls/hr 1X ONCE IV 06/17/18 19:15 06/17/18 20:14 DC 06/17/18 19:22 Fentanyl Citrate (Fentanyl 2ml Vial) 50 mcg 1X ONCE IV 06/17/18 19:15 06/17/18 19:16 DC 06/17/18 19:23 Ondansetron HCl (Zofran) 4 mg PRN Q8HRS PRN IV NAUSEA/VOMITING 06/17/18 19:45 06/18/18 08:57 DC 06/18/18 05:52 Fentanyl Citrate (Fentanyl 2ml Vial) 50 mcg PRN Q1HR PRN IV PAIN 06/17/18 19:45 06/18/18 19:44 06/18/18 10:17 Sodium Chloride 1,000 ml @ 125 mls/hr Q8H IV 06/17/18 19:36 06/18/18 19:35 06/18/18 05:47 Imaging: Imaging: RUQ US IMPRESSION: 1. Cholelithiasis with gallbladder distention and positive sonographic Baez's sign. Correlate for signs and symptoms of acute cholecystitis. 2. Dilated CBD, new from previous exam may be secondary to distal obstructing stone. Further evaluation with MRCP recommended. PE: GEN: NAD, grandmother present HEENT: Atraumatic, PERRL LUNGS: CTAB HEART: RRR ABD: NABS, S/ND, epigastric discomfort EXTREMITY: No edema SKIN: No rashes, no jaundice NEURO/PSYCH: A & O 3 A/P: A/P: Recurrent upper abd pain, vomiting Cholelithiasis, dilated CBD CRC screen - average risk Hepatic steatosis -- Monitor LFTs and await MRCP and/or IOC - ERCP if indicated. On H2 jordana BID - okay to continue. ELIZABETH AMADOR Jun 18, 2018 10:31
[2018-06-18 10:57] LABS: BILIRUBIN,URINE NEGATIVE (NEG); CLARITY,URINE CLEAR; COLOR,URINE YELLOW; NITRITE,URINE NEGATIVE (NEG); PROTEIN,URINE NEGATIVE (NEG-TRACE); UROBILINOGEN,URINE 0.2 mg/dL (0.2 mg/dL)
[2018-06-18 11:00] VITALS: BP 116/71
[2018-06-18 11:12] LABS: BACTERIA,URINE FEW /HPF (0-FEW); RBC,URINE 0 /HPF (0-2); SQUAMOUS EPITHELIAL CELL,UR MANY /LPF; WBC,URINE OCC /HPF (0-4)
--- NOTE | 2018-06-18 11:15 | NUR ---
SW following, discussed with RN. Pt is from home with boyfriend. RN advised no SW needs at this time. SW will continue to follow.
[2018-06-18 15:00] VITALS: BP 111/60
--- NOTE | 2018-06-18 15:00 | NUR ---
This nurse called Dr. Dey for diet orders, Clear Liquid until midnight, NPO after midnight. This nurse will continue to monitor.
--- NOTE | 2018-06-18 15:31 | RAD ---
MRI ABDOMEN W/O CONTRAST: MRCP Clinical Indication: GALLSTONES, ABDOMINAL PAIN, NO SX HX, Comparison: Limited abdominal ultrasound, prior day. CT abdomen and pelvis with contrast, June 03, 2013.. Technique: Multiplanar multiple pulse sequence imaging of the abdomen was performed, including T2 thin slab images through the biliary tree, without contrast. 3-D volume rendering images constructed to better evaluate the biliary tree anatomy. Findings: Biliary tree is normal caliber. No evidence of choledocholithiasis. The pancreatic duct is normal caliber. There is cholelithiasis. Gallbladder wall thickness is upper limits of normal. There is moderate pericholecystic fluid. No hepatic T2 signal abnormality. Spleen size normal. No hydronephrosis. Adrenal glands are normal. Pancreas is homogeneous. No evidence of bowel obstruction. Diffusion weighted and in and out of phase image sequences are unremarkable. IMPRESSION: 1. Gallbladder wall thickness is upper limits of normal. There is cholelithiasis and moderate pericholecystic fluid. Findings are suggestive of cholecystitis. 2. Biliary tree is normal caliber. No choledocholithiasis. Electronically signed by: Willy Balderas MD (06/18/2018 3:28 PM) [id number]
--- NOTE | 2018-06-18 18:08 | HP ---
ADMIT DATE: 06/17/2018 CHIEF COMPLAINT: Right upper quadrant abdominal pain. HISTORY OF PRESENT ILLNESS: A 22-year-old female, obese, no other past medical history, acute onset abdominal pain. She knows about history of gallbladder stones on 05/23/2018, but never caused her problems until few days prior to admission. Some nausea, but no vomiting, no diarrhea, no fevers. Ultrasound shows positive Baez sign on sonographic and physical exam is consistent with cholelithiasis and cholecystitis. Also showed some maybe distal CBD stone, hence admitted. GI to see the patient, plan for diet today, then n.p.o. post-midnight tomorrow. I did consult GI regarding the distal CBD stone to see if MRCP or ERCP can be done to or needed if warranted in the case. PAST MEDICAL HISTORY: None. PAST SURGICAL HISTORY: section. ALLERGIES: None. FAMILY HISTORY: Noncontributory. SOCIAL HISTORY: No smoking, no alcohol, no street drugs. REVIEW OF SYSTEMS: Fourteen-point systems reviewed, otherwise negative as per HPI. PHYSICAL EXAMINATION: GENERAL: Awake, alert, oriented x 3, not in any acute respiratory distress. HEENT: Unremarkable. CHEST: Clear to auscultation bilaterally. HEART: Normal rate and rhythm. No murmurs, rubs or gallops. ABDOMEN: Soft, obese, tenderness in the right upper quadrant, but no guarding. Normoactive bowel sounds. GENITALIA: Appropriate for age. EXTREMITIES: Negative edema. Pulses full and equal. No cyanosis of nailbed. ASSESSMENT AND PLAN: 1. Cholelithiasis with evidence of cholecystitis. 2. Obesity. 3. Distal common bile duct stone. PLAN: 1. Okay for diet for now, then n.p.o. post-midnight. 2. Consult GS and GI. 3. No home meds to reconcile. 4. Pain control. 5. Basic labs are unremarkable. 6. Discussed with mother at bedside. JI AVILA MD DR: /nts JOB#: [id number] / [id number]
[2018-06-18 19:00] VITALS: BP 98/57
[2018-06-18 23:00] VITALS: BP 108/55
[2018-06-19] VITALS (9 sets, daily range): BP systolic 112–154; BP diastolic 60–98
[2018-06-19] MEDS ORDERED: HYDROmorphone 2 MG/ML VIAL IV PRN (07:00)
[2018-06-19] MEDS ORDERED: PROCHLORPERAZINE 10 MG/2 ML VIAL. IV PRN (07:00)
[2018-06-19] MEDS ORDERED: MORPHINE SULFATE 4 MG/ML VIAL. IV PRN (07:00)
[2018-06-19] MEDS ORDERED: ONDANSETRON PF 4 MG/2 ML VIAL. IV PRN ×2 (07:00→11:45)
[2018-06-19] MEDS ORDERED: LIDOCAINE 1% PF 2 ML VIAL. ID PRN (07:00)
[2018-06-19] MEDS ORDERED: IV RINGERS,LACTATED 1000ML 1,000 ML IV SCH (07:00)
[2018-06-19] MEDS ORDERED: fentaNYL PF VIAL 100 MCG/2 ML VIAL IV PRN (07:00)
--- NOTE | 2018-06-19 08:25 | PDOC ---
SURGICAL PROGRESS NOTE Subjective Pre-Op Note 22 yo F with calculous cholecystitis MRCP no CBD stones TO OR for laparoscopic cholecystectomy with cholangiogram R/R/B/A d/w pt. Risks, including, but not limited to: bleeding, infection, damage to surrounding structures, risk of anesthesia, risk of open. She appears to understand, her questions are answered and she elects to proceed. Vital Signs Vital Signs Date Time Temp Pulse Resp B/P (MAP) Pulse Ox O2 Delivery O2 Flow Rate FiO2 06/19/18 07:22 97.6 78 16 127/78 (94) 100 Room Air 97.6 I&O Intake and Output 06/19/18 06:59 Intake Total 540 ml Balance 540 ml Intake Oral 540 ml # Voids 3 Labs Laboratory Tests Test 06/17/18 17:25 06/17/18 17:58 06/18/18 03:35 06/18/18 10:45 White Blood Count 11.3 x10^3/uL (4.0-11.0) 8.2 x10^3/uL (4.0-11.0) Red Blood Count 4.95 x10^6/uL (3.50-5.40) 4.42 x10^6/uL (3.50-5.40) Hemoglobin 12.1 g/dL (12.0-15.5) 10.9 g/dL (12.0-15.5) Hematocrit 38.1 % (36.0-47.0) 34.0 % (36.0-47.0) Mean Corpuscular Volume 77 fL (79-100) 77 fL (79-100) Mean Corpuscular Hemoglobin 24 pg (25-35) 25 pg (25-35) Mean Corpuscular Hemoglobin Concent 32 g/dL (31-37) 32 g/dL (31-37) Red Cell Distribution Width 18.3 % (11.5-14.5) 18.5 % (11.5-14.5) Platelet Count 329 x10^3/uL (140-400) 280 x10^3/uL (140-400) Neutrophils (%) (Auto) 76 % (31-73) 47 % (31-73) Lymphocytes (%) (Auto) 17 % (24-48) 43 % (24-48) Monocytes (%) (Auto) 6 % (0-9) 7 % (0-9) Eosinophils (%) (Auto) 1 % (0-3) 3 % (0-3) Basophils (%) (Auto) 1 % (0-3) 1 % (0-3) Neutrophils # (Auto) 8.6 x10^3uL (1.8-7.7) 3.9 x10^3uL (1.8-7.7) Lymphocytes # (Auto) 1.9 x10^3/uL (1.0-4.8) 3.5 x10^3/uL (1.0-4.8) Monocytes # (Auto) 0.6 x10^3/uL (0.0-1.1) 0.6 x10^3/uL (0.0-1.1) Eosinophils # (Auto) 0.1 x10^3/uL (0.0-0.7) 0.2 x10^3/uL (0.0-0.7) Basophils # (Auto) 0.1 x10^3/uL (0.0-0.2) 0.1 x10^3/uL (0.0-0.2) Sodium Level 140 mmol/L (136-145) 141 mmol/L (136-145) Potassium Level 4.0 mmol/L (3.5-5.1) 3.5 mmol/L (3.5-5.1) Chloride Level 103 mmol/L (98-107) 104 mmol/L (98-107) Carbon Dioxide Level 29 mmol/L (21-32) 26 mmol/L (21-32) Anion Gap 8 (6-14) 11 (6-14) Blood Urea Nitrogen 17 mg/dL (7-20) 13 mg/dL (7-20) Creatinine 0.7 mg/dL (0.6-1.0) 0.7 mg/dL (0.6-1.0) Estimated GFR (Cockcroft-Gault) 106.7 106.7 BUN/Creatinine Ratio 24 (6-20) Glucose Level 99 mg/dL (70-99) 119 mg/dL (70-99) Calcium Level 9.7 mg/dL (8.5-10.1) 8.6 mg/dL (8.5-10.1) Total Bilirubin 0.1 mg/dL (0.2-1.0) Aspartate Amino Transf (AST/SGOT) 13 U/L (15-37) Alanine Aminotransferase (ALT/SGPT) 15 U/L (14-59) Alkaline Phosphatase 79 U/L (46-116) Total Protein 8.1 g/dL (6.4-8.2) Albumin 3.9 g/dL (3.4-5.0) Albumin/Globulin Ratio 0.9 (1.0-1.7) Amylase Level 30 U/L (25-115) Lipase 89 U/L (73-393) Bedside Urine HCG, Qualitative Hcg negative (Negative) Urine Collection Type Unknown Urine Color Yellow Urine Clarity Clear Urine pH 6.0 Urine Specific [place] 1.025 Urine Protein Negative mg/dL (NEG-TRACE) Urine Glucose (UA) Negative mg/dL (NEG) Urine Ketones (Stick) Negative mg/dL (NEG) Urine Blood Negative (NEG) Urine Nitrite Negative (NEG) Urine Bilirubin Negative (NEG) Urine Urobilinogen Dipstick 0.2 mg/dL (0.2 mg/dL) Urine Leukocyte Esterase Negative (NEG) Urine RBC 0 /HPF (0-2) Urine WBC Occ /HPF (0-4) Urine Squamous Epithelial Cells Many /LPF Urine Bacteria Few /HPF (0-FEW) Urine Mucus Mod /LPF Laboratory Tests Test 06/18/18 10:45 Urine Collection Type Unknown Urine Color Yellow Urine Clarity Clear Urine pH 6.0 Urine Specific [place] 1.025 Urine Protein Negative mg/dL (NEG-TRACE) Urine Glucose (UA) Negative mg/dL (NEG) Urine Ketones (Stick) Negative mg/dL (NEG) Urine Blood Negative (NEG) Urine Nitrite Negative (NEG) Urine Bilirubin Negative (NEG) Urine Urobilinogen Dipstick 0.2 mg/dL (0.2 mg/dL) Urine Leukocyte Esterase Negative (NEG) Urine RBC 0 /HPF (0-2) Urine WBC Occ /HPF (0-4) Urine Squamous Epithelial Cells Many /LPF Urine Bacteria Few /HPF (0-FEW) Urine Mucus Mod /LPF Problem List Problems Medical Problems: (1) Cholecystitis Status: Acute (2) Cholelithiasis Status: Acute RIN HOWARD MD Jun 19, 2018 08:25
[2018-06-19] MEDS ORDERED: HEPARIN 1,000 UNIT in IV NORMAL SALINE 1,000 ML for SURG PERIOP IRR ONE (09:00)
[2018-06-19] MEDS: FAMOTIDINE 20 MG TABLET. PO SCH ×2 (09:00→21:40)
[2018-06-19] MEDS: CYCLOBENZAPRINE 10 MG TABLET. PO SCH ×3 (09:00→21:39)
--- NOTE | 2018-06-19 09:02 | PDOC ---
Objective: Objective: Reviewed w/ RN - to go to OR this morning. Vital Signs: Vital Signs Date Time Temp Pulse Resp B/P (MAP) Pulse Ox O2 Delivery O2 Flow Rate FiO2 06/19/18 07:22 97.6 78 16 127/78 (94) 100 Room Air 97.6 Labs: Laboratory Tests Test 06/18/18 10:45 Urine Collection Type Unknown Urine Color Yellow Urine Clarity Clear Urine pH 6.0 Urine Specific [place] 1.025 Urine Protein Negative mg/dL Urine Glucose (UA) Negative mg/dL Urine Ketones (Stick) Negative mg/dL Urine Blood Negative Urine Nitrite Negative Urine Bilirubin Negative Urine Urobilinogen Dipstick 0.2 mg/dL Urine Leukocyte Esterase Negative Urine RBC 0 /HPF Urine WBC Occ /HPF Urine Squamous Epithelial Cells Many /LPF Urine Bacteria Few /HPF Urine Mucus Mod /LPF Imaging: MRCP 06/18 IMPRESSION: 1. Gallbladder wall thickness is upper limits of normal. There is cholelithiasis and moderate pericholecystic fluid. Findings are suggestive of cholecystitis. 2. Biliary tree is normal caliber. No choledocholithiasis. PE: GEN: NAD LUNGS: room air NEURO/PSYCH: sleeping, not awakened A/P: Recurrent upper abd pain, vomiting Cholelithiasis, dilated CBD CRC screen - average risk Hepatic steatosis -- LFTs not checked today but MRCP w/o choledocholithiasis. Plans for cholecystectomy today. Will follow. ELIZABETH AMADOR Jun 19, 2018 09:02
[2018-06-19] MEDS ORDERED: FAMOTIDINE 20 MG/2 ML VIAL ONE (09:39)
[2018-06-19] MEDS ORDERED: fentaNYL PF VIAL 100 MCG/2 ML VIAL ONE ×3 (09:39→12:08)
[2018-06-19] MEDS ORDERED: ROCURONIUM 50 MG/5 ML VIAL. ONE (09:39)
[2018-06-19] MEDS ORDERED: DEXAMETHASONE SOD PHOS 20 MG/5 ML VIAL. ONE (09:39)
[2018-06-19] MEDS ORDERED: ONDANSETRON PF 4 MG/2 ML VIAL. ONE (09:39)
[2018-06-19] MEDS ORDERED: MIDAZOLAM HCL/PF 2 MG/2 ML VIAL. ONE (09:39)
[2018-06-19] MEDS ORDERED: LIDOCAINE 2% PF 5 ML VIAL. ONE (09:39)
[2018-06-19] MEDS ORDERED: PROPOFOL 20 ML IV ONE (09:39)
[2018-06-19] MEDS ORDERED: ceFAZolin 2GM PREMIX 2 GM/50 ML BAG IV ONE (10:00)
[2018-06-19] MEDS ORDERED: BUPIVAC MPF-EPI 0.5%-1:200000 30 ML VIAL. ONE (10:29)
[2018-06-19] MEDS ORDERED: BISACODYL 10 MG SUPP.RECT. ONE (10:29)
[2018-06-19] MEDS ORDERED: SURGICEL HEMOSTAT 2X3 EACH. ONE (10:29)
[2018-06-19] MEDS ORDERED: IOHEXOL 300 MG/ML 100ML VIAL. ONE (10:29)
[2018-06-19] MEDS ORDERED: diphenhydrAMINE 50 MG/ML VIAL ONE (10:43)
--- NOTE | 2018-06-19 10:57 | PDOC ---
PROGRESS NOTES Chief Complaint Chief Complaint 1. Cholelithiasis with evidence of cholecystitis. 2. Obesity. 3. NO Distal common bile duct stone by mRCP History of Present Illness History of Present Illness SHe is out having cholecystectomy laparoscopic by GS appreciate GI note MRCP does not show any CBD stone Plan: postop care Await from OR Vitals Vitals Vital Signs Date Time Temp Pulse Resp B/P (MAP) Pulse Ox O2 Delivery O2 Flow Rate FiO2 06/19/18 09:30 97.2 75 12 122/73 98 Room Air 97.2 Physical Exam General: Alert, Oriented X3, Cooperative, No acute distress Abdomen: Soft, Other (mild TTP RUQ) Extremities: No clubbing, No cyanosis Skin: No rashes, No breakdown Review of Systems Review of Systems Having OR Assessment and Plan Assessmemt and Plan Problems Medical Problems: (1) Cholecystitis Status: Acute (2) Cholelithiasis Status: Acute Comment Review of Relevant I have reviewed the following items sidney (where applicable) has been applied. Labs Laboratory Tests Test 06/17/18 17:25 06/17/18 17:58 06/18/18 03:35 06/18/18 10:45 White Blood Count 11.3 x10^3/uL (4.0-11.0) 8.2 x10^3/uL (4.0-11.0) Red Blood Count 4.95 x10^6/uL (3.50-5.40) 4.42 x10^6/uL (3.50-5.40) Hemoglobin 12.1 g/dL (12.0-15.5) 10.9 g/dL (12.0-15.5) Hematocrit 38.1 % (36.0-47.0) 34.0 % (36.0-47.0) Mean Corpuscular Volume 77 fL (79-100) 77 fL (79-100) Mean Corpuscular Hemoglobin 24 pg (25-35) 25 pg (25-35) Mean Corpuscular Hemoglobin Concent 32 g/dL (31-37) 32 g/dL (31-37) Red Cell Distribution Width 18.3 % (11.5-14.5) 18.5 % (11.5-14.5) Platelet Count 329 x10^3/uL (140-400) 280 x10^3/uL (140-400) Neutrophils (%) (Auto) 76 % (31-73) 47 % (31-73) Lymphocytes (%) (Auto) 17 % (24-48) 43 % (24-48) Monocytes (%) (Auto) 6 % (0-9) 7 % (0-9) Eosinophils (%) (Auto) 1 % (0-3) 3 % (0-3) Basophils (%) (Auto) 1 % (0-3) 1 % (0-3) Neutrophils # (Auto) 8.6 x10^3uL (1.8-7.7) 3.9 x10^3uL (1.8-7.7) Lymphocytes # (Auto) 1.9 x10^3/uL (1.0-4.8) 3.5 x10^3/uL (1.0-4.8) Monocytes # (Auto) 0.6 x10^3/uL (0.0-1.1) 0.6 x10^3/uL (0.0-1.1) Eosinophils # (Auto) 0.1 x10^3/uL (0.0-0.7) 0.2 x10^3/uL (0.0-0.7) Basophils # (Auto) 0.1 x10^3/uL (0.0-0.2) 0.1 x10^3/uL (0.0-0.2) Sodium Level 140 mmol/L (136-145) 141 mmol/L (136-145) Potassium Level 4.0 mmol/L (3.5-5.1) 3.5 mmol/L (3.5-5.1) Chloride Level 103 mmol/L (98-107) 104 mmol/L (98-107) Carbon Dioxide Level 29 mmol/L (21-32) 26 mmol/L (21-32) Anion Gap 8 (6-14) 11 (6-14) Blood Urea Nitrogen 17 mg/dL (7-20) 13 mg/dL (7-20) Creatinine 0.7 mg/dL (0.6-1.0) 0.7 mg/dL (0.6-1.0) Estimated GFR (Cockcroft-Gault) 106.7 106.7 BUN/Creatinine Ratio 24 (6-20) Glucose Level 99 mg/dL (70-99) 119 mg/dL (70-99) Calcium Level 9.7 mg/dL (8.5-10.1) 8.6 mg/dL (8.5-10.1) Total Bilirubin 0.1 mg/dL (0.2-1.0) Aspartate Amino Transf (AST/SGOT) 13 U/L (15-37) Alanine Aminotransferase (ALT/SGPT) 15 U/L (14-59) Alkaline Phosphatase 79 U/L (46-116) Total Protein 8.1 g/dL (6.4-8.2) Albumin 3.9 g/dL (3.4-5.0) Albumin/Globulin Ratio 0.9 (1.0-1.7) Amylase Level 30 U/L (25-115) Lipase 89 U/L (73-393) Bedside Urine HCG, Qualitative Hcg negative (Negative) Urine Collection Type Unknown Urine Color Yellow Urine Clarity Clear Urine pH 6.0 Urine Specific [place] 1.025 Urine Protein Negative mg/dL (NEG-TRACE) Urine Glucose (UA) Negative mg/dL (NEG) Urine Ketones (Stick) Negative mg/dL (NEG) Urine Blood Negative (NEG) Urine Nitrite Negative (NEG) Urine Bilirubin Negative (NEG) Urine Urobilinogen Dipstick 0.2 mg/dL (0.2 mg/dL) Urine Leukocyte Esterase Negative (NEG) Urine RBC 0 /HPF (0-2) Urine WBC Occ /HPF (0-4) Urine Squamous Epithelial Cells Many /LPF Urine Bacteria Few /HPF (0-FEW) Urine Mucus Mod /LPF Medications Current Medications Sodium Chloride 1,000 ml @ 1,000 mls/hr 1X ONCE IV Last administered on at 19:22; Start 06/17/18 at 19:15; Stop 06/17/18 at 20:14; Status DC Fentanyl Citrate (Fentanyl 2ml Vial) 50 mcg 1X ONCE IV Last administered on at 19:23; Start 06/17/18 at 19:15; Stop 06/17/18 at 19:16; Status DC Ondansetron HCl (Zofran) 4 mg PRN Q8HRS PRN IV NAUSEA/VOMITING Last administered on 06/18/18at 05:52; Start 06/17/18 at 19:45; Stop 06/18/18 at 08:57 ; Status DC Morphine Sulfate (Morphine Sulfate) 4 mg PRN Q2HR PRN IV MODERATE PAIN; Start 06/17/18 at 19:45; Stop 06/18/18 at 19:44; Status DC Fentanyl Citrate (Fentanyl 2ml Vial) 50 mcg PRN Q1HR PRN IV SEVERE PAIN Last administered on 06/18/18at 15:52; Start 06/17/18 at 19:45; Stop 06/18/18 at 19:44 ; Status DC Sodium Chloride 1,000 ml @ 125 mls/hr Q8H IV Last administered on 06/18/18at 05 :47; Start 06/17/18 at 19:36; Stop 06/18/18 at 19:35; Status DC Ondansetron HCl (Zofran) 4 mg PRN Q6HRS PRN IV NAUSEA/VOMITING; Start 06/18/18 at 09:00 Acetaminophen (Tylenol) 500 mg PRN Q6HRS PRN PO MILD PAIN / TEMP; Start at 09:00 Acetaminophen/ Codeine Phosphate (Tylenol #3) 1 tab PRN Q6HRS PRN PO MODERATE PAIN; Start 06/18/18 at 09:00 Cyclobenzaprine HCl (Flexeril) 10 mg TID PO Last administered on 06/18/18at 23: 51; Start 06/18/18 at 10:00 Famotidine (Pepcid) 20 mg BID PO Last administered on 06/18/18at 20:00; Start at 10:00 Famotidine (Pepcid) 20 mg BID PO ; Start 06/18/18 at 09:00; Status UNV Acetaminophen/ Hydrocodone Bitart (Lortab 5/325) 1 tab PRN Q6HRS PRN PO SEVERE PAIN Last administered on 06/18/18at 20:01; Start 06/18/18 at 09:00 Ondansetron HCl (Zofran Odt) 4 mg PRN QID PRN PO NAUSEA/VOMITING; Start at 09:00 Cefazolin Sodium/ Dextrose 50 ml @ 100 mls/hr 1X PREOP IV ; Start 06/19/18 at 08:00; Stop 06/19/18 at 18:00 Ondansetron HCl (Zofran) 4 mg PRN Q6HRS PRN IV NAUSEA/VOMITING; Start 06/19/18 at 07:00; Stop 06/20/18 at 06:59 Fentanyl Citrate (Fentanyl 2ml Vial) 25 mcg PRN Q5MIN PRN IV MILD PAIN; Start 06/19/18 at 07:00; Stop 06/20/18 at 06:59 Fentanyl Citrate (Fentanyl 2ml Vial) 50 mcg PRN Q5MIN PRN IV MODERATE TO SEVERE PAIN; Start 06/19/18 at 07:00; Stop 06/20/18 at 06:59 Morphine Sulfate (Morphine Sulfate) 1 mg PRN Q10MIN PRN IV SEVERE PAIN; Start 06/19/18 at 07:00; Stop 06/20/18 at 06:59 Ringer's Solution 1,000 ml @ 30 mls/hr Q24H IV ; Start 06/19/18 at 07:00; Stop 06/19/18 at 18:59 Lidocaine HCl (Xylocaine-Mpf 1% 2ml Vial) 2 ml PRN 1X PRN ID PRIOR TO IV START ; Start 06/19/18 at 07:00; Stop 06/20/18 at 06:59 Hydromorphone HCl (Dilaudid) 0.5 mg PRN Q10MIN PRN IV SEV PAIN, Second choice; Start 06/19/18 at 07:00; Stop 06/20/18 at 06:59 Prochlorperazine Edisylate (Compazine) 5 mg PACU PRN PRN IV NAUSEA, MRX1; Start 06/19/18 at 07:00; Stop 06/20/18 at 06:59 Heparin Sodium (Porcine) 1000 unit/Sodium Chloride 1,001 ml @ 1,001 mls/hr 1X ONCE IRR ; Start 06/19/18 at 09:00; Stop 06/19/18 at 09:59; Status DC Propofol 20 ml @ As Directed STK-MED ONCE IV ; Start 06/19/18 at 09:39; Stop at 09:40; Status DC Dexamethasone Sodium Phosphate (Decadron) 20 mg STK-MED ONCE .ROUTE ; Start at 09:39; Stop 06/19/18 at 09:40; Status DC Lidocaine HCl (Lidocaine Pf 2% Vial) 5 ml STK-MED ONCE .ROUTE ; Start 06/19/18 at 09:39; Stop 06/19/18 at 09:40; Status DC Famotidine (Pepcid Vial) 20 mg STK-MED ONCE .ROUTE ; Start 06/19/18 at 09:39; Stop 06/19/18 at 09:40; Status DC Ondansetron HCl (Zofran) 4 mg STK-MED ONCE .ROUTE ; Start 06/19/18 at 09:39; Stop 06/19/18 at 09:40; Status DC Midazolam HCl (Versed) 2 mg STK-MED ONCE .ROUTE ; Start 06/19/18 at 09:39; Stop 06/19/18 at 09:40; Status DC Fentanyl Citrate (Fentanyl 2ml Vial) 100 mcg STK-MED ONCE .ROUTE ; Start at 09:39; Stop 06/19/18 at 09:40; Status DC Rocuronium [place] (Zemuron) 50 mg STK-MED ONCE .ROUTE ; Start 06/19/18 at 09:39 ; Stop 06/19/18 at 09:40; Status DC Bupivacaine HCl/ Epinephrine Bitart (Sensorcain-Mpf Epi 0.5%-1:[id number]) 30 ml STK -MED ONCE .ROUTE ; Start 06/19/18 at 10:29; Stop 06/19/18 at 10:30; Status DC Cellulose (Surgicel Hemostat 2x3) 1 each STK-MED ONCE .ROUTE ; Start 06/19/18 at 10:29; Stop 06/19/18 at 10:30; Status DC Iohexol (Omnipaque 300 Mg/ml) 100 ml STK-MED ONCE .ROUTE ; Start 06/19/18 at 10: 29; Stop 06/19/18 at 10:30; Status DC Bisacodyl (Dulcolax Supp) 10 mg STK-MED ONCE .ROUTE ; Start 06/19/18 at 10:29; Stop 06/19/18 at 10:30; Status DC Diphenhydramine HCl (Benadryl) 50 mg STK-MED ONCE .ROUTE ; Start 06/19/18 at 10: 43; Stop 06/19/18 at 10:44; Status DC Fentanyl Citrate (Fentanyl 2ml Vial) 100 mcg STK-MED ONCE .ROUTE ; Start at 10:44; Stop 06/19/18 at 10:45; Status DC Active Scripts Active Pepcid (Famotidine) 20 Mg Tablet 20 Mg PO BID Ondansetron Odt (Ondansetron) 4 Mg Tab.rapdis 1 Tab PO PRN Q6-8HRS [place] 5-325 Tablet (Acetaminophen/Hydrocodone Bitart) 1 Each Tablet 1 Tab PO PRN Q6HRS PRN Famotidine 20 Mg Tablet 20 Mg PO BID 10 Days Ondansetron Odt (Ondansetron) 4 Mg Tab.rapdis 1 Tab PO PRN Q6-8HRS PRN Medrol (Methylprednisolone) 4 Mg Tab.ds.pk 1 Pkg PO UD Cyclobenzaprine Hcl 10 Mg Tablet 1 Tab PO TID Diclofenac Sodium 50 Mg Tablet.dr 1 Tab PO BID Valtrex (Valacyclovir Hcl) 1,000 Mg Tablet 1 Tab PO BID 7 Days Reported Lutera (Levonorgestrel-Eth Estradiol) 1 Each Tablet 1 Each PO DAILY Vitals/I & O Vital Sign - Last 24 Hours 06/18/18 06/18/18 06/18/18 06/18/18 11:00 15:00 15:52 16:30 Temp 97.6 98.2 97.6 98.2 Pulse 82 97 Resp 18 18 B/P (MAP) 116/71 (86) 111/60 (77) Pulse Ox 100 98 100 100 O2 Delivery Room Air Room Air Room Air Room Air 06/18/18 06/18/18 06/18/18 06/18/18 19:00 20:00 20:01 21:01 Temp 98.2 98.2 Pulse 96 Resp 18 B/P (MAP) 98/57 (71) Pulse Ox 98 O2 Delivery Room Air Room Air Room Air Room Air 06/18/18 06/19/18 06/19/18 06/19/18 23:00 03:00 07:22 09:30 Temp 97.8 97.9 97.6 97.2 97.8 97.9 97.6 97.2 Pulse 95 77 78 75 Resp 18 18 16 12 B/P (MAP) 108/55 (72) 112/60 (77) 127/78 (94) 122/73 Pulse Ox 97 97 100 98 O2 Delivery Room Air Room Air Room Air Room Air Intake and Output 06/18/18 06/18/18 06/19/18 14:59 22:59 06:59 Intake Total 540 ml Balance 540 ml JI AVILA MD Jun 19, 2018 10:57
[2018-06-19] MEDS ORDERED: NEOSTIGMINE 10 MG/10 ML VIAL. ONE (11:27)
[2018-06-19] MEDS ORDERED: GLYCOPYRROLATE 1 MG/5 ML VIAL. ONE (11:27)
[2018-06-19] MEDS ORDERED: DESFLURANE 61 TO 120 MINUTES IH ONE (11:31)
--- NOTE | 2018-06-19 11:33 | RAD ---
Examination: Operative cholangiogram History: Post cholecystectomy. Procedure: 2 Fluoroscopic images were provided during the procedure. The cystic duct has been catheterized and contrast has been injected. Findings: The common hepatic bile duct and common bile duct are patent without evidence of intraluminal filling defect or obstruction. Contrast empties normally into the duodenum. Impression: Normal operative cholangiogram. Fluoroscopic time 12 seconds Electronically signed by: Melvin Fowler MD (06/19/2018 11:30 AM) [id number]
--- NOTE | 2018-06-19 11:42 | PDOC4 ---
OPERATIVE NOTE Date: Date: Jun 19, 2018 Pre-Op Diagnosis: Calculous cholecystitis Post-Op Diagnosis: same Procedure Performed: Laparoscopic cholecystectomy with cholangiogram Surgeon: Rodney Howard Anesthesia Type: GETA plus local Blood Loss: 50 Specimans Obtained: gallbladder Findings: edema of gallbladder wall, morbid obesity, fatty liver Complications: none Operative Note: After obtaining informed consent, patient was taken to OR, induced under GETA and prepped in the usual fashion. 5 mm port placed umbilical and RUQ, 12 port placed epigastric, all under laparoscopic guidance. Abdominal cavity was explored and noted as above. Gallbladder grasped and critical view dissected out. Cystic artery ligated with clips. Cholangiogram obtained via cystic duct and normal. Cystic duct ligated with hemolok and clips. Gallbladder taken off fossa using cautery, placed in bag, delivered and sent to pathology. Copious irrigation and no bleeding or pathology noted. Ports removed without bleeding. Fascia repaired with 0 vicryl. Skin repaired with 4 0 monocryl. Dressing placed. Patient tolerated procedure well and sent to PACU in stable condition. All counts correct. Wound class is 2. RIN OHWARD MD Jun 19, 2018 11:42
[2018-06-19] MEDS ORDERED: KETOROLAC 15 MG/ML VIAL. IV PRN (11:45)
[2018-06-19] MEDS: ENOXAPARIN 40 MG/0.4 ML SYRINGE. SQ SCH (11:45)
[2018-06-19] MEDS ORDERED: 0.9 % SODIUM CHLORIDE 10 ML DISP.SYRIN. IV PRN (11:45)
[2018-06-19] MEDS ORDERED: DEXTROSE 50% 25 GM / 50ML DISP.SYRIN. IV PRN (11:45)
--- NOTE | 2018-06-19 11:58 | NUR ---
SW following for discharge planning. Discussed with RN, pt having a surgery today. SW will continue to follow.
[2018-06-19] MEDS: fentaNYL PF VIAL 100 MCG/2 ML VIAL IV PRN ×2 (12:14→13:10)
[2018-06-19] MEDS: MORPHINE SULFATE 4 MG/ML VIAL. IV PRN ×2 (14:48→16:12)
[2018-06-19] MEDS: HYDROcodone/APAP 5/325MG 1 TAB TABLET PO PRN ×2 (14:50→19:43)
--- NOTE | 2018-06-19 15:45 | NUR ---
Pt arrives to unit from PACU. Pt crying c/o pain 12/30 at this time. Explained to pt before she left PACU she was given Fentanyl. Discussed pain medication options with pt. Pt verbalized understanding. Pt has 3 lap sites on abdomen C/D/I. Pt laying in bed at this time with family member at bedside call light in reach. Addendum: 06/19/18 at 2012 by VIGNESH PELAYO RN Pt arrives to unit at 1330
[2018-06-19] MEDS: DOCUSATE SODIUM 100 MG CAPSULE. PO SCH (21:39)
[2018-06-20 03:00] VITALS: BP 118/77
[2018-06-20] MEDS: HYDROcodone/APAP 5/325MG 1 TAB TABLET PO PRN ×3 (03:22→15:24)
[2018-06-20 07:00] VITALS: BP 135/88
[2018-06-20] MEDS: CYCLOBENZAPRINE 10 MG TABLET. PO SCH ×2 (08:42→15:23)
[2018-06-20] MEDS: DOCUSATE SODIUM 100 MG CAPSULE. PO SCH (08:42)
[2018-06-20] MEDS: FAMOTIDINE 20 MG TABLET. PO SCH (08:42)
[2018-06-20] MEDS: MORPHINE SULFATE 4 MG/ML VIAL. IV PRN (08:52)
[2018-06-20] MEDS: ENOXAPARIN 40 MG/0.4 ML SYRINGE. SQ SCH (08:53)
--- NOTE | 2018-06-20 09:38 | PDOC ---
Subjective: Subjective: Sore - around incisions, different than pre-op pain. Tolerating PO, passing a little gas, no stool. Objective: Vital Signs: Vital Signs Date Time Temp Pulse Resp B/P (MAP) Pulse Ox O2 Delivery O2 Flow Rate FiO2 06/20/18 08:52 Room Air 06/20/18 07:00 97.6 78 16 135/88 (104) 100 97.6 06/19/18 12:00 10 Imaging: IOC 06/19 Impression: Normal operative cholangiogram. PE: GEN: uncomfortable LUNGS: CTAB HEART: RRR ABD: BS+, sore around incisions NEURO/PSYCH: A & O 3 A/P: S/p cholecystectomy w/ normal IOC -- ELIZABETH AMADOR Jun 20, 2018 09:38
--- NOTE | 2018-06-20 10:30 | NUR ---
SW following for discharge planning. Discussed with RN, pt lives with her boyfriend's parents and her baby. RN advised no SW needs and anticipates possible discharge home with self care today. SW will continue to follow.
--- NOTE | 2018-06-20 10:52 | PDOC ---
SURGICAL PROGRESS NOTE Subjective pain was worse this AM, now better no n/v Vital Signs Vital Signs Date Time Temp Pulse Resp B/P (MAP) Pulse Ox O2 Delivery O2 Flow Rate FiO2 06/20/18 08:52 Room Air 06/20/18 07:00 97.6 78 16 135/88 (104) 100 97.6 06/19/18 12:00 10 I&O Intake and Output 06/20/18 07:00 Intake Total 3050 ml Output Total 510 ml Balance 2540 ml Intake Oral 1200 ml IV Total 1850 ml Output Urine Total 500 ml Estimated Blood Loss 10 ml # Voids 5 General: Alert, Oriented X3, Cooperative, No acute distress Abdomen: Soft, Other (ND, lap dressings dry, incisional TTP) Problem List Problems Medical Problems: (1) Cholecystitis Status: Acute (2) Cholelithiasis Status: Acute Assessment/Plan s/p bola possible DC later today OMAR NIXON APRN Jun 20, 2018 10:52
[2018-06-20 11:00] VITALS: BP 117/75
--- NOTE | 2018-06-20 13:57 | PDOC3 ---
Discharge Summary Visit Information Date of Admission: Jun 17, 2018 Date of Discharge: Jun 20, 2018 Admitting Diagnosis: abd pain Final Diagnosis 1. acute Cholelithiasis with evidence of cholecystitis. 2. Obesity. BMI 35 3. No Distal common bile duct stone by mRCP Problems Medical Problems: (1) Cholecystitis Status: Acute (2) Cholelithiasis Status: Acute Brief Hospital Course Allergies Allergies Coded Allergies Type Severity Reaction Last Updated Verified No Known Drug Allergies 08/14/13 No Vital Signs Vital Signs Date Time Temp Pulse Resp B/P (MAP) Pulse Ox O2 Delivery O2 Flow Rate FiO2 06/20/18 11:00 98.1 82 18 117/75 (89) 97 Room Air 98.1 06/19/18 12:00 10 Brief Hospital Course Ms. Fiore is a 22 old female, admit acut eabd pain , taken to OR, bola, IOC ok, pain persist, better at DC Discharge Information Condition at Discharge: Improved Follow Up: Weeks Disposition/Orders: D/C to Home Scheduled Cyclobenzaprine Hcl (Cyclobenzaprine Hcl) 10 Mg Tablet, 1 TAB PO TID, #30 Prescribed by: Chasity Orantes APRN on 12/10/17 002 Last Action: Continued on 06/18/18 0858 by JI AVILA Diclofenac Sodium (Diclofenac Sodium) 50 Mg Tablet., 1 TAB PO BID, #20 Ref 0 Prescribed by: Chasity Orantes APRN on 12/10/17 002 Last Action: HELD on 06/18/18 0857 by JI AVILA Famotidine (Famotidine) 20 Mg Tablet, 20 MG PO BID for 10 Days, #20 Ref 0 Prescribed by: MICHELLE ESTEVEZ APRN on 04/23/18 1344 Last Action: Continued on 06/18/18 0858 by JI AVILA Famotidine (Pepcid) 20 Mg Tablet, 20 MG PO BID, #14 Prescribed by: FISH BARRERA D.O. on 05/23/18 0658 Last Action: Continued on 06/18/18 0858 by JI AVILA Levonorgestrel-Eth Estradiol (Lutera) 1 Each Tablet, 1 EACH PO DAILY, (Reported) Entered as Reported by: ARON THAO on 06/03/13 0052 Last Action: HELD on 06/18/18856 by JI AVILA Methylprednisolone (Medrol) 4 Mg Tab.ds.pk, 1 PKG PO UD, #1 Prescribed by: Chasity Orantes APRN on 12/10/17 0022 Last Action: HELD on 06/18/18856 by JI AVILA Ondansetron (Ondansetron Odt) 4 Mg Tab.rapdis, 1 TAB PO PRN Q6-8HRS for VOMITING , #16 Prescribed by: FISH BARRERA D.O. on 05/23/1858 Last Action: HELD on 06/18/18856 by JI AVILA Valacyclovir Hcl (Valtrex) 1,000 Mg Tablet, 1 TAB PO BID for 7 Days Prescribed by: NICK KELLEY on 07/11/16 2342 Scheduled PRN Hydrocodone/[place] 5-325 ([place] 5-325 Tablet) 1 Each Tablet, 1 TAB PO PRN Q6HRS PRN for PAIN, #10 Ref 0 Prescribed by: FISH BARRERA D.O. on 05/23/1858 Last Action: Continued on 06/18/18857 by JI AVILA Ondansetron (Ondansetron Odt) 4 Mg Tab.rapdis, 1 TAB PO PRN Q6-8HRS PRN for NAUSEA/VOMITING, #16 Ref 0 NS Prescribed by: MICHELLE ESTEVEZ APRN on 04/23/18 1344 Last Action: Continued on 06/18/18857 by JI AVILA Patient Instructions Patient Instructions < 30 min face to face HOANG HWANG MD Jun 20, 2018 13:57
--- NOTE | 2018-06-20 15:45 | NUR ---
Pt was discharged to home at 1545 in stable condition with all personal belongings after reviewing all pertinent information including education, medications, follow up and at home care. Pt was escorted via WC and accompanied by staff and friend to the main exit where her friend drove pt home.
--- NOTE | 2018-06-20 15:58 | PDOC ---
PROGRESS NOTES Chief Complaint Chief Complaint 1. Cholelithiasis with evidence of cholecystitis. 2. Obesity. 3. NO Distal common bile duct stone by mRCP History of Present Illness History of Present Illness DC home Plan: postop care Await from OR Vitals Vitals Vital Signs Date Time Temp Pulse Resp B/P (MAP) Pulse Ox O2 Delivery O2 Flow Rate FiO2 06/20/18 15:24 Room Air 06/20/18 11:00 98.1 82 18 117/75 (89) 97 98.1 06/19/18 12:00 10 Physical Exam General: Alert, Oriented X3, Cooperative, No acute distress Abdomen: Soft, Other (ND, lap dressings dry, incisional TTP) Extremities: No clubbing, No cyanosis Skin: No rashes, No breakdown Assessment and Plan Assessmemt and Plan Problems Medical Problems: (1) Cholecystitis Status: Acute (2) Cholelithiasis Status: Acute Comment Review of Relevant I have reviewed the following items sidney (where applicable) has been applied. Medications Current Medications Sodium Chloride 1,000 ml @ 1,000 mls/hr 1X ONCE IV Last administered on at 19:22; Start 06/17/18 at 19:15; Stop 06/17/18 at 20:14; Status DC Fentanyl Citrate (Fentanyl 2ml Vial) 50 mcg 1X ONCE IV Last administered on at 19:23; Start 06/17/18 at 19:15; Stop 06/17/18 at 19:16; Status DC Ondansetron HCl (Zofran) 4 mg PRN Q8HRS PRN IV NAUSEA/VOMITING Last administered on 06/18/18at 05:52; Start 06/17/18 at 19:45; Stop 06/18/18 at 08:57 ; Status DC Morphine Sulfate (Morphine Sulfate) 4 mg PRN Q2HR PRN IV MODERATE PAIN; Start 06/17/18 at 19:45; Stop 06/18/18 at 19:44; Status DC Fentanyl Citrate (Fentanyl 2ml Vial) 50 mcg PRN Q1HR PRN IV SEVERE PAIN Last administered on 06/18/18at 15:52; Start 06/17/18 at 19:45; Stop 06/18/18 at 19:44 ; Status DC Sodium Chloride 1,000 ml @ 125 mls/hr Q8H IV Last administered on 06/18/18at 05 :47; Start 06/17/18 at 19:36; Stop 06/18/18 at 19:35; Status DC Ondansetron HCl (Zofran) 4 mg PRN Q6HRS PRN IV NAUSEA/VOMITING; Start 06/18/18 at 09:00; Stop 06/20/18 at 14:34; Status DC Acetaminophen (Tylenol) 500 mg PRN Q6HRS PRN PO MILD PAIN / TEMP; Start at 09:00 Acetaminophen/ Codeine Phosphate (Tylenol #3) 1 tab PRN Q6HRS PRN PO MODERATE PAIN; Start 06/18/18 at 09:00 Cyclobenzaprine HCl (Flexeril) 10 mg TID PO Last administered on 06/20/18at 15:23 ; Start 06/18/18 at 10:00 Famotidine (Pepcid) 20 mg BID PO Last administered on 06/20/18at 08:42; Start at 10:00 Famotidine (Pepcid) 20 mg BID PO ; Start 06/18/18 at 09:00; Status UNV Acetaminophen/ Hydrocodone Bitart (Lortab 5/325) 1 tab PRN Q6HRS PRN PO SEVERE PAIN Last administered on 06/18/18at 20:01; Start 06/18/18 at 09:00; Stop at 11:40; Status DC Ondansetron HCl (Zofran Odt) 4 mg PRN QID PRN PO NAUSEA/VOMITING; Start at 09:00 Cefazolin Sodium/ Dextrose 50 ml @ 100 mls/hr 1X PREOP IV ; Start 06/19/18 at 08:00; Stop 06/19/18 at 18:00; Status DC Ondansetron HCl (Zofran) 4 mg PRN Q6HRS PRN IV NAUSEA/VOMITING; Start 06/19/18 at 07:00; Stop 06/20/18 at 06:59; Status DC Fentanyl Citrate (Fentanyl 2ml Vial) 25 mcg PRN Q5MIN PRN IV MILD PAIN; Start 06/19/18 at 07:00; Stop 06/20/18 at 06:59; Status DC Fentanyl Citrate (Fentanyl 2ml Vial) 50 mcg PRN Q5MIN PRN IV MODERATE TO SEVERE PAIN Last administered on 06/19/18at 13:10; Start 06/19/18 at 07:00; Stop 06/20/18 at 06:59; Status DC Morphine Sulfate (Morphine Sulfate) 1 mg PRN Q10MIN PRN IV SEVERE PAIN Last administered on 06/19/18at 20:46; Start 06/19/18 at 07:00; Stop 06/20/18 at 06:59 ; Status DC Ringer's Solution 1,000 ml @ 30 mls/hr Q24H IV ; Start 06/19/18 at 07:00; Stop 06/19/18 at 18:59; Status DC Lidocaine HCl (Xylocaine-Mpf 1% 2ml Vial) 2 ml PRN 1X PRN ID PRIOR TO IV START ; Start 06/19/18 at 07:00; Stop 06/20/18 at 06:59; Status DC Hydromorphone HCl (Dilaudid) 0.5 mg PRN Q10MIN PRN IV SEV PAIN, Second choice; Start 06/19/18 at 07:00; Stop 06/20/18 at 06:59; Status DC Prochlorperazine Edisylate (Compazine) 5 mg PACU PRN PRN IV NAUSEA, MRX1; Start 06/19/18 at 07:00; Stop 06/20/18 at 06:59; Status DC Heparin Sodium (Porcine) 1000 unit/Sodium Chloride 1,001 ml @ 1,001 mls/hr 1X ONCE IRR Last administered on 06/19/18at 11:52; Start 06/19/18 at 09:00; Stop at 09:59; Status DC Propofol 20 ml @ As Directed STK-MED ONCE IV ; Start 06/19/18 at 09:39; Stop at 09:40; Status DC Dexamethasone Sodium Phosphate (Decadron) 20 mg STK-MED ONCE .ROUTE ; Start at 09:39; Stop 06/19/18 at 09:40; Status DC Lidocaine HCl (Lidocaine Pf 2% Vial) 5 ml STK-MED ONCE .ROUTE ; Start 06/19/18 at 09:39; Stop 06/19/18 at 09:40; Status DC Famotidine (Pepcid Vial) 20 mg STK-MED ONCE .ROUTE ; Start 06/19/18 at 09:39; Stop 06/19/18 at 09:40; Status DC Ondansetron HCl (Zofran) 4 mg STK-MED ONCE .ROUTE ; Start 06/19/18 at 09:39; Stop 06/19/18 at 09:40; Status DC Midazolam HCl (Versed) 2 mg STK-MED ONCE .ROUTE ; Start 06/19/18 at 09:39; Stop 06/19/18 at 09:40; Status DC Fentanyl Citrate (Fentanyl 2ml Vial) 100 mcg STK-MED ONCE .ROUTE ; Start at 09:39; Stop 06/19/18 at 09:40; Status DC Rocuronium [place] (Zemuron) 50 mg STK-MED ONCE .ROUTE ; Start 06/19/18 at 09:39 ; Stop 06/19/18 at 09:40; Status DC Bupivacaine HCl/ Epinephrine Bitart (Sensorcain-Mpf Epi 0.5%-1:[id number]) 30 ml STK -MED ONCE .ROUTE Last administered on 06/19/18at 10:21; Start 06/19/18 at 10:29 ; Stop 06/19/18 at 10:30; Status DC Cellulose (Surgicel Hemostat 2x3) 1 each STK-MED ONCE .ROUTE ; Start 06/19/18 at 10:29; Stop 06/19/18 at 10:30; Status DC Iohexol (Omnipaque 300 Mg/ml) 100 ml STK-MED ONCE .ROUTE Last administered on at 11:51; Start 06/19/18 at 10:29; Stop 06/19/18 at 10:30; Status DC Bisacodyl (Dulcolax Supp) 10 mg STK-MED ONCE .ROUTE Last administered on at 11:45; Start 06/19/18 at 10:29; Stop 06/19/18 at 10:30; Status DC Diphenhydramine HCl (Benadryl) 50 mg STK-MED ONCE .ROUTE ; Start 06/19/18 at 10: 43; Stop 06/19/18 at 10:44; Status DC Fentanyl Citrate (Fentanyl 2ml Vial) 100 mcg STK-MED ONCE .ROUTE ; Start at 10:44; Stop 06/19/18 at 10:45; Status DC Neostigmine Methylsulfate (Bloxiverz) 10 mg STK-MED ONCE .ROUTE ; Start at 11:27; Stop 06/19/18 at 11:28; Status DC Glycopyrrolate (Robinul) 1 mg STK-MED ONCE .ROUTE ; Start 06/19/18 at 11:27; Stop 06/19/18 at 11:28; Status DC Desflurane (Suprane) 60 ml STK-MED ONCE IH ; Start 06/19/18 at 11:31; Stop 06/19 at 11:32; Status DC Enoxaparin Sodium (Lovenox 40mg Syringe) 40 mg DAILY SQ Last administered on 08:53; Start 06/19/18 at 11:45 Sodium Chloride (Normal Saline Flush) 3 ml QSHIFT PRN IV AFTER MEDS AND BLOOD DRAWS; Start 06/19/18 at 11:45 Dextrose (Dextrose 50%-Water Syringe) 12.5 gm PRN Q15MIN PRN IV SEE COMMENTS; Start 06/19/18 at 11:45 Acetaminophen/ Hydrocodone Bitart (Lortab 5/325) 1 tab PRN Q4HRS PRN PO PAIN SEVERE Last administered on 06/20/18 15:24; Start 06/19/18 at 11:45 Ketorolac Tromethamine (Toradol 15mg Vial) 15 mg PRN Q6HRS PRN IV PAIN MILD Last administered on 06/19/18at 13:47; Start 06/19/18 at 11:45; Stop 06/24/18 at 11:44 Morphine Sulfate (Morphine Sulfate) 1 mg PRN Q1HR PRN IV PAIN SEVERE Last administered on 06/20/18 08:52; Start 06/19/18 at 11:45 Docusate Sodium (Colace) 100 mg BID PO Last administered on 06/20/18 08:42; Start 06/19/18 at 21:00 Ondansetron HCl (Zofran) 4 mg PRN Q6HRS PRN IV NAUESA, 1ST CHOICE Last administered on 06/20/18 08:49; Start 06/19/18 at 11:45 Fentanyl Citrate (Fentanyl 2ml Vial) 100 mcg STK-MED ONCE .ROUTE ; Start at 12:08; Stop 06/19/18 at 12:09; Status DC Cefazolin Sodium/ Dextrose (Ancef 2gm Premix) 2 gm STK-MED ONCE IV ; Start 06/19 at 10:00; Stop 06/20/18 at 08:23; Status DC Active Scripts Active Pepcid (Famotidine) 20 Mg Tablet 20 Mg PO BID Ondansetron Odt (Ondansetron) 4 Mg Tab.rapdis 1 Tab PO PRN Q6-8HRS [place] 5-325 Tablet (Acetaminophen/Hydrocodone Bitart) 1 Each Tablet 1 Tab PO PRN Q6HRS PRN Ondansetron Odt (Ondansetron) 4 Mg Tab.rapdis 1 Tab PO PRN Q6-8HRS PRN Cyclobenzaprine Hcl 10 Mg Tablet 1 Tab PO TID Diclofenac Sodium 50 Mg Tablet.dr 1 Tab PO BID Valtrex (Valacyclovir Hcl) 1,000 Mg Tablet 1 Tab PO BID 7 Days Reported Lutera (Levonorgestrel-Eth Estradiol) 1 Each Tablet 1 Each PO DAILY Vitals/I & O Vital Sign - Last 24 Hours 06/19/18 06/19/18 06/19/18 06/19/18 16:12 16:42 19:00 19:43 Temp 97.7 97.7 Pulse 71 Resp 20 18 18 B/P (MAP) 136/89 (105) Pulse Ox 98 O2 Delivery Room Air Room Air Room Air 06/19/18 06/19/18 06/19/18 06/19/18 20:25 20:46 21:16 23:00 Temp 98.0 98.0 Pulse 102 Resp 18 B/P (MAP) 127/78 (94) Pulse Ox 96 O2 Delivery Room Air Room Air Room Air Room Air 06/20/18 06/20/18 06/20/18 06/20/18 03:00 03:22 07:00 08:00 Temp 97.9 97.6 97.9 97.6 Pulse 99 78 Resp 18 16 B/P (MAP) 118/77 (91) 135/88 (104) Pulse Ox 96 100 O2 Delivery Room Air Room Air Room Air Room Air 06/20/18 06/20/18 06/20/18 06/20/18 08:42 08:52 09:30 09:30 O2 Delivery Room Air Room Air Room Air Room Air 06/20/18 06/20/18 11:00 15:24 Temp 98.1 98.1 Pulse 82 Resp 18 B/P (MAP) 117/75 (89) Pulse Ox 97 O2 Delivery Room Air Room Air Intake and Output 06/19/18 06/19/18 06/20/18 15:00 23:00 07:00 Intake Total 1850 ml 800 ml 400 ml Output Total 510 ml Balance 1340 ml 800 ml 400 ml HOANG HWANG MD Jun 20, 2018 15:58
--- NOTE | 2018-06-20 17:10 | PATHOLOGY ---
[facility] Accession Number: [id number] . 01 Material submitted: . GALLBLADDER . 01 Clinical history: . Cholelithiasis vs cholecystitis. . 02 Diagnosis: Gallbladder, laparoscopic cholecystectomy: - Cholelithiasis. - Cholesterolosis, focal. - Chronic and focal acute cholecystitis with increased eosinophils. (JPM:[facility] 06/20/2018) P/06/20/2018 . 02 Comment: There is no evidence of malignancy. (JP:[facility] 06/20/2018) . 02 Electronically signed: . Javier Lozano MD, Pathologist NPI- [id number] . 01 Gross description: . Received in formalin labeled "[place], [place], gallbladder" is an intact cholecystectomy specimen measuring 8.5 x 3.6 x 2.8 cm. The serosa is pink-eng and smooth and the specimen is opened to reveal yellow-green velvety mucosa with focal hemorrhagic areas and an average wall thickness of 0.2 cm. No polyps or masses are identified. Multiple yellow-green bosselated calculi and fragments of calculi are present measuring in aggregate 3.1 x 2.7 x 0.6 cm and ranging from 0.1-0.9 cm in greatest dimension. [employer] Head sections of the fundus and body and the cystic duct margin are submitted in cassette A1. [place] [place] SYC/SYC . 02 Pathologist provided ICD-10: K80.12, K82.4 . 02 CPT . 962782 Specimen Comment: A courtesy copy of this report has been sent to Specimen Comment: [phone], , , . Specimen Comment: Report sent to ,DR LEDEZMA,DR AC / DR POWELL Specimen Comment: A duplicate report has been generated due to demographic updates. Performed at: [address], [place] [id number] MD Thony Yao MD Phone: [phone] Performed at: [address] [id number] MD Javier Lozano MD Phone: [phone]
== END 2018-06-20 15:45 | disposition home or self-care (01) | DRG 419 ==
LOC: ER 16:40 → 4 NORTH 19:25
PROVIDERS: ADMIT Internal Medicine; ATTEND Internal Medicine
PROC: BF101ZZ Fluoroscopy of Bile Ducts using Low Osmolar Contrast (ICD-10-PCS; 2018-06-19)
PROC: 0FT44ZZ Resection of Gallbladder, Percutaneous Endoscopic Approach (ICD-10-PCS; principal; 2018-06-19 10:30)
DX: K80.64 Calculus of gallbladder and bile duct with chronic cholecystitis without obstruction (principal); F32.9 Major depressive disorder, single episode, unspecified; E66.01 Morbid (severe) obesity due to excess calories; F17.210 Nicotine dependence, cigarettes, uncomplicated; K76.0 Fatty (change of) liver, not elsewhere classified; Z80.3 Family history of malignant neoplasm of breast; Z68.34 Body mass index [BMI] 34.0-34.9, adult; Z98.891 History of uterine scar from previous surgery
CPT/HCPCS: 36415; 74181; 74300; 76705; 80048; 80053; 81001; 81025; 82150; 83690; 85025; 88304; 96360; 96361; A7015; J0696; J1100; J1200; J1644; J1650; J1885; J2001; J2250; J2270; J2405; J2704; J2710; J3010; J3490; J7030; Q9967; 99285-25

== ENCOUNTER 2019-01-15 19:12 | Emergency (ER) | payer BC, MEDICAID ==
[~2019-01-15] VITALS: Ht 167.6 cm; Wt 104.3 kg
--- NOTE | 2019-01-15 19:47 | PHYS DOC ---
Past Medical History Past Medical History: Depression, Other Additional Past Medical Histor: gallstones Past Surgical History: Alcohol Use: Rarely Drug Use: None Adult General Chief Complaint Chief Complaint: RIB PAIN HPI HPI Patient is a 23 year old Female who presents with for the last 2 weeks she has had a nonproductive cough and started having left-sided rib pain that wraps around into a part of the left upper abdomen area. Patient states it was coming and going so she with cough and now it is constant 9 out of 10 pain. Patient rates the pain is worse if she takes a deep breath. Patient takes no medications daily and is on no current of control or hormone replacement. Patient states she does smoke marijuana and cigarettes and has a date in the past but states not recently. Review of Systems Review of Systems Constitutional: Denies fever. chills [] Respiratory: cough or denies shortness of breath [] GI: Upper left abdominal pain, denies nausea, vomiting, bloody stools or diarrhea [] Musculoskeletal: Left rib pain radiating into left abdomen. Denies back pain or joint pain [] All other systems were reviewed and found to be within normal limits, except as documented in this note. Allergies Allergies Allergies Coded Allergies Type Severity Reaction Last Updated Verified No Known Drug Allergies 08/14/13 No Physical Exam Physical Exam Constitutional: Well developed, well nourished, no acute distress, non-toxic appearance. [] HENT: Normocephalic, atraumatic, bilateral external ears normal, oropharynx moist, no oral exudates, nose normal. [] Eyes: PERRLA, EOMI, conjunctiva normal, no discharge. [] Neck: Normal range of motion, no tenderness, supple, no stridor. [] Cardiovascular:Heart rate regular rhythm, no murmur [] Lungs & Thorax: Bilateral breath sounds clear to auscultation [] Abdomen: Bowel sounds normal, soft, no tenderness, no masses, no pulsatile masses. [] Skin: Warm, dry, no erythema, no rash. [] Back: No tenderness, no CVA tenderness. [] Extremities: No tenderness, no cyanosis, no clubbing, ROM intact, no edema. [] Neurologic: Alert and oriented X 3, normal motor function, normal sensory function, no focal deficits noted. [] Psychologic: Affect normal, judgement normal, mood normal. [] Current Patient Data Vital Signs Vital Signs Date Time Temp Pulse Resp B/P (MAP) Pulse Ox O2 Delivery O2 Flow Rate FiO2 01/15/19 19:52 98.7 102 20 137/74 (95) 99 Room Air 98.7 Lab Values Laboratory Tests Test 01/15/19 19:35 01/15/19 19:49 POC Urine HCG, Qualitative Hcg negative (Negative) White Blood Count 10.7 x10^3/uL (4.0-11.0) Red Blood Count 4.54 x10^6/uL (3.50-5.40) Hemoglobin 13.2 g/dL (12.0-15.5) Hematocrit 39.5 % (36.0-47.0) Mean Corpuscular Volume 87 fL (79-100) Mean Corpuscular Hemoglobin 29 pg (25-35) Mean Corpuscular Hemoglobin Concent 34 g/dL (31-37) Red Cell Distribution Width 14.5 % (11.5-14.5) Platelet Count 266 x10^3/uL (140-400) Neutrophils (%) (Auto) 80 % (31-73) H Lymphocytes (%) (Auto) 14 % (24-48) L Monocytes (%) (Auto) 6 % (0-9) Eosinophils (%) (Auto) 0 % (0-3) Basophils (%) (Auto) 1 % (0-3) Neutrophils # (Auto) 8.5 x10^3/uL (1.8-7.7) H Lymphocytes # (Auto) 1.4 x10^3/uL (1.0-4.8) Monocytes # (Auto) 0.6 x10^3/uL (0.0-1.1) Eosinophils # (Auto) 0.0 x10^3/uL (0.0-0.7) Basophils # (Auto) 0.1 x10^3/uL (0.0-0.2) Sodium Level 143 mmol/L (136-145) Potassium Level 3.7 mmol/L (3.5-5.1) Chloride Level 105 mmol/L (98-107) Carbon Dioxide Level 31 mmol/L (21-32) Anion Gap 7 (6-14) Blood Urea Nitrogen 10 mg/dL (7-20) Creatinine 1.0 mg/dL (0.6-1.0) Estimated GFR (Cockcroft-Gault) 70.0 BUN/Creatinine Ratio 10 (6-20) Glucose Level 96 mg/dL (70-99) Calcium Level 9.1 mg/dL (8.5-10.1) Total Bilirubin 0.2 mg/dL (0.2-1.0) Aspartate Amino Transferase (AST) 13 U/L (15-37) L Alanine Aminotransferase (ALT) 18 U/L (14-59) Alkaline Phosphatase 76 U/L (46-116) Total Protein 7.5 g/dL (6.4-8.2) Albumin 3.6 g/dL (3.4-5.0) Albumin/Globulin Ratio 0.9 (1.0-1.7) L Lipase 125 U/L (73-393) Laboratory Tests 01/15/19 19:49 Laboratory Tests 01/15/19 19:49 EKG EKG [] Radiology/Procedures Radiology/Procedures [] Impressions: [facility] [address] [place], [place] [id number] IMAGING REPORT Signed PATIENT: KASIA ASHLEY ACCOUNT: [id number] : 1995 LOCATION: ER AGE: 23 SEX: F EXAM STATUS: REG ER ORD. PHYSICIAN: NARESH GHOTRA APRN REASON: COUGH, RIB PAIN, SMOKER PROCEDURE: RIBS BILAT & PA CXR 4+V Indication: Cough, pain. TECHNIQUE: Multiple views of the bilateral ribs and chest x-ray. COMPARISON: None FINDINGS: Heart is normal in size. Lungs are clear. No pneumothorax or pleural effusion. No acute fractures. IMPRESSION: No acute findings. Electronically signed by: José Mantilla DO (01/15/2019 8:25 PM) [facility] DICTATED and SIGNED BY: JOSÉ MANTILLA DO DATE: 01/15/192024 Course & Med Decision Making Course & Med Decision Making Patient is a 23 year old Female who presents with for the last 2 weeks she has had a nonproductive cough and started having left-sided rib pain that wraps around into a part of the left upper abdomen area. Patient states it was coming and going so she with cough and now it is constant 9 out of 10 pain. Patient rates the pain is worse if she takes a deep breath. Patient takes no medications daily and is on no current of control or hormone replacement. Patient states she does smoke marijuana and cigarettes and has a date in the past but states not recently. Patient denies nausea, vomiting, shortness of air, chest pain or diarrhea, fever, dizziness, visual changes, numbness or tingling. No calf tenderness. Lungs are clear to auscultation all lobes. Abdomen is soft and nontender. Patient does have tenderness to the left rib cage. Skin is pink warm and dry. Ambulatory with a steady gait. No extremity tenderness. No extremity edema. Chest and ribs xray show no acute findings. Heart rate 99 and vitals remain sta ble. PERC states negative. Follow up with primary care physician. Sanket Disclaimer Sanket Disclaimer This electronic medical record was generated, in whole or in part, using a voice recognition dictation system. Departure Departure Impression: Primary Impression: Cough Additional Impression: Rib pain Disposition: 01 HOME, SELF-CARE Condition: STABLE Referrals: JESSICA AC DO (PCP) Patient Instructions: Cough, Adult Additional Instructions: Follow up with primary care provider. Take medications as prescribed. Scripts Ibuprofen (IBUPROFEN) 600 Mg Tablet 600 MG PO PRN Q6HRS PRN for INFLAMMATION, #20 TAB Prov: NARESH GHOTRA APRN 01/15/19 Methylprednisolone (MEDROL) 4 Mg Tab.ds.pk 1 PKG PO UD, #1 PKG Prov: NARESH GHOTRA APRN 01/15/19 Benzonatate (TESSALON PERLE) 100 Mg Capsule 1 CAP PO TID, #30 CAP Prov: NARESH GHOTRA APRN 01/15/19 Problem Qualifiers NARESH GHOTRA APRN Jan 15, 2019 19:47
[2019-01-15 19:56] LABS: BASO # 0.1 x10^3/uL (0.0-0.2); BASO % 1 % (0-3); EOS % 0 % (0-3); HEMATOCRIT 39.5 % (36.0-47.0); HEMOGLOBIN 13.2 g/dL (12.0-15.5); LYMPH # 1.4 x10^3/uL (1.0-4.8); LYMPH % 14 % (24-48); MEAN CORPUSCULAR HEMOGLOBIN 29 pg (25-35); MEAN CORPUSCULAR HGB CONC 34 g/dL (31-37); MEAN CORPUSCULAR VOLUME 87 fL (79-100); MONO # 0.6 x10^3/uL (0.0-1.1); MONO % 6 % (0-9); NEUT # 8.5 x10^3/uL (1.8-7.7); NEUT % 80 % (31-73); PLATELET COUNT 266 x10^3/uL (140-400); RED BLOOD COUNT 4.54 x10^6/uL (3.50-5.40); RED CELL DISTRIBUTION WIDTH 14.5 % (11.5-14.5); WHITE BLOOD COUNT 10.7 x10^3/uL (4.0-11.0)
[2019-01-15 20:06] LABS: CALCIUM 9.1 mg/dL (8.5-10.1); POTASSIUM 3.7 mmol/L (3.5-5.1)
[2019-01-15 20:13] LABS: ALBUMIN 3.6 g/dL (3.4-5.0); ALBUMIN/GLOBULIN RATIO 0.9 (1.0-1.7); TOTAL BILIRUBIN 0.2 mg/dL (0.2-1.0); TOTAL PROTEIN 7.5 g/dL (6.4-8.2)
[2019-01-15 20:18] VITALS: BP 132/79
--- NOTE | 2019-01-15 20:29 | RAD ---
Indication: Cough, pain. TECHNIQUE: Multiple views of the bilateral ribs and chest x-ray. COMPARISON: None FINDINGS: Heart is normal in size. Lungs are clear. No pneumothorax or pleural effusion. No acute fractures. IMPRESSION: No acute findings. Electronically signed by: José Mantilla DO (01/15/2019 8:25 PM) [facility]
[2019-01-15] MEDS ORDERED: METH4TAB2 PO (20:37)
[2019-01-15] MEDS ORDERED: IBUP-1007 PO (20:37)
[2019-01-15] MEDS ORDERED: BENZ100C PO (20:37)
== END 2019-01-15 20:41 | disposition home or self-care (01) ==
LOC: ER 19:12
DX: R05 Cough (principal); R07.81 Pleurodynia; F17.200 Nicotine dependence, unspecified, uncomplicated
CPT/HCPCS: 36415; 71111; 80053; 81025; 83690; 85025; 99285-25

== ENCOUNTER 2020-04-08 19:08 | Emergency (ER) | payer MEDICAID ==
[~2020-04-08] VITALS: Ht 165.1 cm; Wt 97.7 kg
[~2020-04-08 19:08] MED LIST changes: +BENZ100C PO; +IBUP-1007 PO
[2020-04-08] MEDS ORDERED: IV NORMAL SALINE 1000ML BAG 1,000 ML IV SCH (19:30)
[2020-04-08] MEDS ORDERED: IV NORMAL SALINE 1000ML BAG 1,000 ML IV ONE (19:30)
[2020-04-08] MEDS ORDERED: DEXAMETHASONE SOD PHOS 20 MG/5 ML VIAL. IV ONE (19:45)
--- NOTE | 2020-04-08 19:45 | PHYS DOC ---
Past Medical History Past Medical History: Depression, Other Additional Past Medical Histor: gallstones Past Surgical History: Colectomy, Smoking Status: Current Every Day Smoker Alcohol Use: Occasionally Drug Use: Marijuana General Adult EDM: Chief Complaint: SORE THROAT HPI: HPI: 24-year-old female past medical history significant for depression and obesity, presents the ED with complaints of sore throat for the past 2 to 3 days. Reports she has a history of recurrent pharyngitis, last antibiotic use was 3 years ago. Has no routine primary care. Unsure if she has been exposed to Covid. Reports associated fever and chills, improved with ibuprofen. LMP was 2 weeks ago. Believes vaccines are UTD. Has never followed up with ENT. Review of Systems: Review of Systems: Constitutional: Denies diaphoresis, lack of taste or smell Eyes: Denies change in visual acuity, or tinnitus HENT: Denies nasal congestion, drooling or changes in voice, or inability to control secretions Respiratory: Denies cough or shortness of breath. [] Cardiovascular: Denies chest pain or edema. [] GI: Denies abdominal pain, nausea, vomiting, bloody stools or diarrhea. [] : Denies dysuria. [] Musculoskeletal: Denies back pain or joint pain. [] Integument: Denies rash. [] Neurologic: Denies headache, focal weakness or sensory changes. [] Endocrine: Denies polyuria or polydipsia. [] Lymphatic: Denies swollen glands. [] Psychiatric: Denies depression or anxiety. [] Heart Score: Risk Factors: Risk Factors: DM, Current or recent (<one month) smoker, HTN, HLP, family history of CAD, obesity. Risk Scores: Score 0 - 3: 2.5% MACE over next 6 weeks - Discharge Home Score 4 - 6: 20.3% MACE over next 6 weeks - Admit for Clinical Observation Score 7 - 10: 72.7% MACE over next 6 weeks - Early Invasive Strategies Current Medications: Current Medications Medications (Trade) Dose Ordered Sig/Melinda Start Time Stop Time Status Last Admin Dose Admin Sodium Chloride 1,000 ml @ 1,000 mls/hr 1X ONCE 04/08/20 19:30 04/08/20 20:29 Allergies: Allergies: Allergies Coded Allergies Type Severity Reaction Last Updated Verified No Known Drug Allergies 08/14/13 No Physical Exam: PE: Constitutional: no acute distress, non-toxic appearance, febrile/flu-appearing HENT: Normocephalic, atraumatic, Eyes: EOMI, conjunctiva normal, no discharge, enlarged tonsils bl with erythema- entirely coated with white exudates and some dark pigments in the exudates, uvula normal/no swelling, no slurred speech, drooling or tripod positioning Neck: Normal range of motion, supple, Cardiovascular: S1/2 present, regular rhythm, tachycardic Lungs & Thorax: Speaking in full sentences, bilateral equal chest rise, no tachypnea or increased work of breathing Abdomen: soft, no tenderness, Skin: Warm, dry, no erythema, no rash. [] Back: No tenderness, Extremities: No tenderness, no cyanosis, no edema Neurologic: Alert and oriented X 3, normal motor function, normal sensory function, no focal deficits noted. [] Psychologic: Affect normal, judgement normal, mood normal. [] EKG: EKG: Sinus tachycardia 125 bpm, no axis deviation, normal intervals, no T wave inversions, no ST elevations or ST depressions Radiology/Procedures: Radiology/Procedures: []IMAGING REPORT Signed PATIENT: KASIA ASHLEY ACCOUNT: [id number] : 1995 LOCATION: ER AGE: 24 SEX: F EXAM STATUS: REG ER ORD. PHYSICIAN: KYLE KAMINSKI DO REASON: cp, soa PROCEDURE: PORTABLE CHEST 1V EXAM: Chest, single view. HISTORY: Chest pain and shortness of breath. COMPARISON: None. FINDINGS: A frontal view of the chest is obtained. There is no infiltrate, pleural effusion or pneumothorax. The heart is normal in size. IMPRESSION: No acute pulmonary finding. Electronically signed by: Valentine Bosch MD (04/08/2020 8:33 PM) [facility] DICTATED and SIGNED BY: VALENTINE BOSCH MD DATE: 04/08/[id number] 0 IMAGING REPORT Signed PATIENT: KASIA ASHLEY ACCOUNT: [id number] : 1995 LOCATION: ER AGE: 24 SEX: F EXAM STATUS: REG ER ORD. PHYSICIAN: KYLE KAMINSKI DO REASON: sore throat, OMNI 300, 70 ML IV PROCEDURE: CT SOFT TISSUE NECK W/CONTRAST EXAM: Neck CT with intravenous contrast. HISTORY: Sore throat. TECHNIQUE: Computed tomographic images of the neck were obtained following the admission of contrast. *One or more of the following individualized dose reduction techniques were utilized for this examination: 1. Automated exposure control. 2. Adjustment of the mA and/or kV according to patient size. 3. Use of iterative reconstruction technique. COMPARISON: None. FINDINGS: There are enlarged adenoid and tonsillar soft tissues without evidence of a mass or abscess. No retropharyngeal abscess is seen. The airways midline and patent. The parotid, submandibular and thyroid glands are unremarkable. There are multiple prominent bilateral cervical chain lymph nodes. These may be physiologic or reactive in a patient of this age. The visualized portions of the brain are unremarkable. No cervical spine lesion or significant cervical spine stenosis is seen. The lung apices are unremarkable. The paranasal sinuses are clear. IMPRESSION: Enlarged bilaterally tonsillar soft tissue without evidence of a mass or abscess. Enlarged bilateral cervical chain lymph nodes, the physiologic or reactive in a patient of this age. Electronically signed by: Valentine Bosch MD (04/08/2020 8:59 PM) [facility] DICTATED and SIGNED BY: VALENTINE BOSCH MD DATE: 04/08/20 [id number] 0 Course & Med Decision Making: Course & Med Decision Making Pertinent Labs and Imaging studies reviewed. (See chart for details) Concern for acute pharyngitis, CT imaging w/no abscess. D-dimer ordered incorrectly, has no dyspnea/hemoptysis or difficulties breathing, no UL leg swelling. Pt does meet sepsis criteria. Is not toxic appearing, maintaining her BP - is normal appearing for acute pharyngitis. Patient is speaking in full sentences, no drooling, controlling her secretions with no difficulties breathing. Influenza, Monospot and rapid strep negative. Covid test pending. Will discharge home with augmentin. Strict ED return precautions were given for fever, neck fullness, drooling, speech changes, difficulties breathing or neck stiffness. Encouraged urgent outpatient follow-up with PMD and ENT for outpatient follow-up. Life-threatening processes were considered but are low suspicion at this time, given history, physical exam and ED workup. Pt was educated on all prescription medications and adverse effects. All patient's questions were answered and pt was stable at time of discharge. Life/limb-threatening differential includes but is not limited to, spike's angina, peritonsillar abscess, retropharyngeal abscess, epiglottitis, bacterial tracheitis, uvulitis, sepsis, mastoiditis, traumatic injury, carotid/vertebral dissection, intracranial aneurysms or neurologic process. I spoken with the patient and her caregivers. I explained the patient's condition, diagnoses and treatment plan based on the information available to me at this time. I have answered the patient and her caregiver's questions and addressed any concerns. The patient and her caregivers have a good understanding of patient's diagnosis, condition and treatment plan as can be expected at this point. Vital signs have been stable. Patient's condition is stable and appropriate for discharge from the emergency department. Patient will pursue further outpatient evaluation with primary care physician or other designated or consulting physician as outlined in the discharge instructions. The patient and/or caregivers are agreeable to this plan of care and follow-up instructions have been explained in detail. The patient and/or caregivers have received these instructions in written form and have expressed an understanding of the discharge instructions. The patient and/or caregivers are aware that any significant change of condition or worsening of symptoms should prompt immediate return to this or the closest emergency department or call to 911. Sanket Disclaimer: Sanket Disclaimer: This electronic medical record was generated, in whole or in part, using a voice recognition dictation system. Departure Departure Impression: Primary Impression: Acute pharyngitis Disposition: 01 DC HOME SELF CARE/HOMELESS Condition: STABLE Referrals: JESSICA AC DO (PCP) in 1- 2days Patient Instructions: Viral and Bacterial Pharyngitis Additional Instructions: FOLLOW UP WITH ENT: Otolaryngology Address: [address], [address] [place] [address] director of manufacturing operations [facility] Address: [address] [place] [id number] You have been tested for or diagnosed with COVID-19. It is an infection caused by a new type of coronavirus. COVID-19 will cause cold-like or mild flu symptoms in most. It can cause more severe symptoms like problems breathing in some. There is no treatment for COVID-19. The body will clear the infection over time. Self-care will help to ease discomfort. Steps to Take: Self-Care Rest as needed. Healthy habits may help you feel better. Steps include: Choose healthy foods including fruits and vegetables. Drink water throughout the day. Get plenty of sleep each night. If you smoke, try to quit. It may ease breathing. Avoid alcohol. Keep Others Healthy The virus can spread to others. Droplets are released every time you sneeze or cough. The droplets can get into the mouth, nose, or eyes of people near you and lead to infection. To lower the chances of spreading COVID-19 to others: Stay at home until your doctor has said it is safe to leave. If you tested positive this will mean staying isolated until both of the following are true: At least 7 days have passed since the start of illness. You are free of fever for at least 72 hours without the use of medicine. During this time: - Avoid public areas, events, or transportation. Do not return to work or school until your doctor has said it is safe to do so. - Call ahead if you need to go to a medical center. Let them know you may have COVID-19. It will help them guide you where to go. They may also ask you to wear a facemask when you come to the office. - If you call for emergency medical services, let them know you may have COVID- 19. While at home: - Try to avoid close contact with others. Stay about 6 feet away. - If possible, spend most of your time in a separate room from others. - Use a face mask if you will be in close contact with others such as sharing a room or vehicle. - Have someone wipe down common surfaces in the home. Use household service desk lead every day on areas like doorknobs, counters, or sinks. - Cough or sneeze into a tissue. Throw the tissue away right after use. If a tissue is not available, cough or sneeze into your elbow. - Wash your hands often. Wash them after sneezing or coughing. Use soap and water and wash for at least 20 seconds. Alcohol based hand equipment or machinery cleaner can be used if soap and water is not available. - Do not prepare food for others. Avoid sharing personal items like forks, spoons, or toothbrushes. - Avoid close contact with pets while you are sick. There is no evidence of the virus passing to pets. This is a safety step until more is known about this virus. Isolation can be frustrating. Social interaction can help. Keep in touch with friends and family through phone and tech options. You can still interact with others in y our home, just keep a safe distance of about 6 feet. Follow-up: Your doctors office will check in with you to see if there are any changes in your health. You may be asked to keep track of symptoms to share with them. They will also let you know when you are clear to be in public again. Problems to Look Out For: Contact your doctor if your recovery is not going as you expect. Get emergency care if you have problems such as: - Trouble breathing - Nonstop chest pain or pressure - Changes in awareness, confusion, or problems waking - Lips or face have bluish color - Worsening of symptoms If you think you have an emergency, call for emergency medical services right away. As taken from [facility] EMERGENCY DEPARTMENT GENERAL DISCHARGE INSTRUCTIONS Thank you for coming to [facility] Emergency Department (ED) today and trusting us with you care. We trust that you had a positive experience in our Emergency Department. If you wish to speak to the department management, you may call the Director at [phone]. YOUR FOLLOW UP INSTRUCTIONS ARE FOLLOWS: 1. Do you have a private Doctor? If you do not have a private doctor, please ask for a resource list of physicians or clinics that may be able to assist you with follow up care. 2. The Emergency Physicain has interpreted your x-rays. The X-Ray specialist will also review them. If there is a change in the findings, you will be notified in 48 hours when at all possible. 3. A lab test or culture has been done, your results will be reviewed and you will be notified if you need a change in treatment. ADDITIONAL INSTRUCTIONS AND INFORMATION: 1. Your care today has been supervised by a physician who is specially trained in emergency care. Many problems require more than one evaluation for a complete diagnosis and treatment. We recommend that you schedule your follow up appointment as recommended to ensure complete treatment of you illness or injury. If you are unable to obtain follow up care and continue to have a problem, or if your condition worsens, we recommend that you return to the ED. 2. We are not able to safely determine your condition over the phone nor are we able to give sound medical advice over the phone. For these safety reasons, if you call for medical advice we will ask you to come to the ED for further evaluation. 3. If you have any questions regarding these discharge instructions please call the ED at [phone]. SAFETY INFORMATION: In the interest of safety, wellness, and injury prevention; we encourage you to wear your sealbelt, if you smoke; quite smoking, and we encourage family to use a protective helmet for bicycling and other sporting events that present an increased risk for head injury. IF YOUR SYMPTOMS WORSEN OR NEW SYMPTOMS DEVELOP, OR YOU HAVE CONCERNS ABOUT YOUR CONDITION; OR IF YOUR CONDITION WORSENS WHILE YOU ARE WAITING FOR YOUR FOLLOW UP EDGAR OINTMENT; EITHER CONTACT YOUR PRIMARY CARE DOCTOR, THE PHYSICIAN WHOSE NAME AND NUMBER YOU WERE GIVEN, OR RETURN TO THE ED IMMEDIATELY. Scripts Amoxicillin/Potassium Clav (AUGMENTIN 875-125 TABLET) 1 Each Tablet 1 TAB PO Q12HR for 10 Days, #20 TAB Prov: KYLE KAMINSKI DO 04/08/20 KYLE KAMINSKI DO Apr 08, 2020 19:45
[2020-04-08 19:46] LABS: BASO # 0.1 x10^3/uL (0.0-0.2); BASO % 0 % (0-3); EOS % 0 % (0-3); HEMATOCRIT 38.9 % (36.0-47.0); HEMOGLOBIN 13.3 g/dL (12.0-15.5); LYMPH % 6 % (24-48); MEAN CORPUSCULAR HEMOGLOBIN 31 pg (25-35); MEAN CORPUSCULAR HGB CONC 34 g/dL (31-37); MEAN CORPUSCULAR VOLUME 90 fL (79-100); MONO # 1.1 x10^3/uL (0.0-1.1); MONO % 6 % (0-9); NEUT # 14.9 x10^3/uL (1.8-7.7); NEUT % 88 % (31-73); PLATELET COUNT 254 x10^3/uL (140-400); RED BLOOD COUNT 4.33 x10^6/uL (3.50-5.40); RED CELL DISTRIBUTION WIDTH 12.8 % (11.5-14.5)
[2020-04-08 19:56] LABS: CALCIUM 8.9 mg/dL (8.5-10.1); CREATININE 0.6 mg/dL (0.6-1.0); POTASSIUM 3.6 mmol/L (3.5-5.1)
[2020-04-08 20:00] LABS: ALBUMIN 3.4 g/dL (3.4-5.0); ALBUMIN/GLOBULIN RATIO 0.9 (1.0-1.7); TOTAL BILIRUBIN 0.5 mg/dL (0.2-1.0)
[2020-04-08] MEDS ORDERED: AMPICILLIN/SULBACTAM 3 GM in IV NORMAL SALINE 100ML 100 ML IV ONE (20:00)
[2020-04-08 20:05] LABS: MONONUCLEOSIS PATIENT NEGATIVE (NEGATIVE)
[2020-04-08 20:07] LABS: % BANDS 5 % (0-9); % LYMPHS 5 % (24-48); % MONOS 5 % (0-10); % SEGS 85 % (35-66); PLT ESTIMATE ADEQUATE (ADEQUATE)
[2020-04-08 20:08] LABS: TOXIC VACUOLATION SLIGHT
[2020-04-08] MEDS ORDERED: CONTRAST GIVEN. MC PRN (20:15)
[2020-04-08] MEDS ORDERED: IOHEXOL 300 MG/ML 100ML VIAL. IV ONE (20:15)
--- NOTE | 2020-04-08 20:36 | RAD ---
EXAM: Chest, single view. HISTORY: Chest pain and shortness of breath. COMPARISON: None. FINDINGS: A frontal view of the chest is obtained. There is no infiltrate, pleural effusion or pneumo thorax. The heart is normal in size. IMPRESSION: No acute pulmonary finding. Electronically signed by: Valentine Zavaleta MD (04/08/2020 8:33 PM) [facility]
--- NOTE | 2020-04-08 21:02 | RAD ---
EXAM: Neck CT with intravenous contrast. HISTORY: Sore throat. TECHNIQUE: Computed tomographic images of the neck were obtained following the admission of contrast. *One or more of the following individualized dose reduction techniques were utilized for this examina tion: 1. Automated exposure control. 2. Adjustment of the mA and/or kV according to patient size. 3. Use of iterative reconstruction technique. COMPARISON: None. FINDINGS: There are enlarged adenoid and tonsillar soft tissues without evidence of a mass or abscess . No retropharyngeal abscess is seen. The airways midline and patent. The parotid, submandibular and thyroid glands are unremarkable. There are multiple prominent bilateral cervical chain lymph nodes. T hese may be physiologic or reactive in a patient of this age. The visualized portions of the brain ar e unremarkable. No cervical spine lesion or significant cervical spine stenosis is seen. The lung api clemente are unremarkable. The paranasal sinuses are clear. IMPRESSION: Enlarged bilaterally tonsillar soft tissue without evidence of a mass or abscess. Enlarge d bilateral cervical chain lymph nodes, the physiologic or reactive in a patient of this age. Electronically signed by: Valentine Zavaleta MD (04/08/2020 8:59 PM) [facility]
[2020-04-08 21:19] LABS: INFLUENZA A PATIENT NEGATIVE (NEGATIVE); INFLUENZA B PATIENT NEGATIVE (NEGATIVE)
[2020-04-08 22:00] VITALS: BP 115/57
[2020-04-08] MEDS ORDERED: KETOROLAC 15 MG/ML VIAL. IVP ONE (22:00)
[2020-04-08] MEDS ORDERED: AMOX1TAB61 PO (23:24)
--- NOTE | 2020-04-09 13:08 | EKG ---
[facility] [address] [place] [address] Test Date: 2020-04-08 Test Time: 19:18:45 Pat Name: KASIA ASHLEY Department: Room: Gender: F Title I Paraprofessional: : 1995 Requested By: KYLE KAMINSKI Order Number: [id number] Reading MD: Measurements Intervals [place] Rate: 125 P: 4 CO: 130 QRS: 33 QRSD: 84 T: 28 QT: 288 QTc: 417 Interpretive Statements SINUS TACHYCARDIA OTHERWISE NORMAL ECG RI6.02 No previous ECG available for comparison
--- NOTE | 2020-04-11 09:02 | NUR ---
IP: Attempted to contact pt on COVID results. Phone number provided in EMR is disconnected or no longer in service.
== END 2020-04-08 23:51 | disposition home or self-care (01) ==
LOC: ER 19:08
DX: J02.9 Acute pharyngitis, unspecified (principal); Z20.828 Contact with and (suspected) exposure to other viral communicable diseases; R50.9 Fever, unspecified; F32.9 Major depressive disorder, single episode, unspecified; F12.90 Cannabis use, unspecified, uncomplicated; F17.200 Nicotine dependence, unspecified, uncomplicated; Z90.89 Acquired absence of other organs; Z98.890 Other specified postprocedural states
CPT/HCPCS: 36415; 70491; 71045; 80053; 81025; 82550; 84484; 85007; 85025; 85379; 86308; 87070; 87804; 87880; 93005; 96365; 96375; 99285; C9803; J0295; J1100; J1885; J7030; Q9967; U0003